=== PATIENT | female | born 1935 | race Caucasian/White ===

== ENCOUNTER 2017-06-27 13:55 | Inpatient (IN) | payer MEDICARE ==
[~2017-06-27] VITALS: Ht 167.6 cm; Wt 89.6 kg
--- NOTE | 2017-06-27 13:55 | NUR ---
BIBRA 860 C/O GENERALIZED WEAKNESS, COUGH AND PINPOINT PUPIL. PLACED ON MONITOR. AWAITING MD ORDER.
[2017-06-27 14:37] LABS: ABG BASE EXCESS -5.7 mmol/L; ABG OXYGEN SATURATION 88.4 % (92.0-98.5); ABG PCO2 37.6 mmHg (35.0-45.0); ABG PH 7.335 (7.350-7.450); ABG PO2 59.9 mmHg (75.0-100.0); AaDO2 182.1 mmHg; COHb 0.9 % (0.5-1.5); MetHb 0.3 % (0.0-1.5); O2Hb 87.3 % (94.0-97.0); SITE, ABG Right Radial; VENT MODE, BG NC 4L
[2017-06-27] MEDS ORDERED: ALPR0.5T8 PO (14:39)
[2017-06-27] MEDS ORDERED: ROSU10TA PO (14:39)
[2017-06-27] MEDS ORDERED: ZOLP10TA6 PO (14:39)
[2017-06-27] MEDS ORDERED: RANI150T8 PO (14:39)
[2017-06-27] MEDS ORDERED: METO25TA3 PO (14:39)
[2017-06-27] MEDS ORDERED: AMLO10TA2 PO (14:39)
[2017-06-27] MEDS ORDERED: OLME20TA13 PO (14:39)
[2017-06-27] MEDS ORDERED: AMIO200T2 PO (14:39)
[2017-06-27] MEDS ORDERED: OXYC10TA49 PO (14:39)
[2017-06-27] MEDS ORDERED: GABA-534 PO (14:39)
[2017-06-27] MEDS ORDERED: METF500T4 PO (14:39)
--- NOTE | 2017-06-27 14:39 | NUR ---
ACOUSTICAL ENGINEER AT BEDSIDE
--- NOTE | 2017-06-27 14:44 | NUR ---
NAY # 20 IV ACCESS. BLOOD SAMPLE COLLECTED SENT TO LAB
[2017-06-27 14:45] LABS: BASOPHILS # (AUTO) 0.2 /CMM (0.0-0.2); BASOPHILS % (AUTO) 1.3 % (0.0-2.0); HEMATOCRIT 36 % (33-45); HEMOGLOBIN 11.9 g/dL (11.5-14.8); LYMPHOCYTES # (AUTO) 0.9 /CMM (0.8-4.8); LYMPHOCYTES % (AUTO) 6.3 % (20.0-44.0); MEAN CORPUSCULAR HEMOGLOBIN 26 PG (26.0-33.0); MEAN CORPUSCULAR HGB CONC 33 g/dl (31.0-36.0); MEAN CORPUSCULAR VOLUME 79 fL (82-100); MONOCYTES # (AUTO) 0.2 /CMM (0.1-1.30); MONOCYTES % (AUTO) 1.4 % (2.0-12.0); NEUTROPHILS # (AUTO) 13.3 /CMM (1.8-8.9); PLATELET COUNT (AUTO) 377 /CMM (150-450); RDW COEFFICIENT OF VARIATION 17.7 (11.5-15.0); RED BLOOD CELL COUNT(AUTO) 4.55 MIL/uL (4.0-5.2); WHITE BLOOD COUNT (AUTO) 14.6 K/uL (4.3-11.0)
[2017-06-27 14:54] LABS: INR 0.89 (0.85-1.15)
[2017-06-27 14:56] LABS: APPEARANCE,URINE Clear (CLEAR); BILIRUBIN,URINE Negative (NEGATIVE); BLOOD, URINE Negative Ery/uL (NEGATIVE); COLOR,URINE Yellow (YELLOW); KETONES,URINE Negative (NEGATIVE); LEUKOCYTE ESTERASE ,URINE Negative (NEGATIVE); NITRITE, URINE Positive (NEGATIVE); PROTEIN,URINE 30 mg/dl (NEGATIVE); UGLUCOSE Negative (NEGATIVE); UROBILINOGEN,URINE 0.2 EU/dL (0.2)
[2017-06-27] MEDS ORDERED: NALOXONE HCL 0.4 MG/ML AMPUL IV ONE (15:00)
--- NOTE | 2017-06-27 15:04 | NUR ---
FILM RENTAL CLERK AT BEDSIDE
[2017-06-27] MEDS ORDERED: NALOXONE HCL 0.4 MG/ML AMPUL ONE (15:08)
[2017-06-27] MEDS ORDERED: VANCOMYCIN 1 GM in IV D5W 250 ML IV ONE (15:30)
[2017-06-27] MEDS ORDERED: IV NS 0.9% 1,000 ML BAG IV ONE (15:30)
[2017-06-27] MEDS ORDERED: CEFEPIME 1 GM in IV D5W 50 ML IV ONE (15:30)
[2017-06-27 15:31] LABS: CALCIUM, SERUM 8.6 mg/dL (8.5-10.1); CARBON DIOXIDE 21 mmol/L (21-32); CHLORIDE 105 mmol/L (98-107); GLUCOSE 116 mg/dL (74-106); POTASSIUM 3.9 mmol/L (3.5-5.1); SODIUM SERUM 142 mmol/L (136-145); UREA NITROGEN, BLOOD 30 mg/dL (7-18)
[2017-06-27 15:43] LABS: ALANINE AMINOTRANSFERASE 34 U/L (12-78); ALBUMIN 3.5 g/dL (3.4-5.0); ALKALINE PHOSPHATASE 100 U/L (46-116); ASPARTATE AMINOTRANSFERASE 29 U/L (15-37); B-TYPE NATRIURETIC PEPTIDE 1263 PG/ML (0-125); BILIRUBIN,DIRECT 0.1 mg/dL (0.0-0.2); BILIRUBIN,TOTAL 0.5 mg/dL (0.2-1.0); TOTAL PROTEIN, SERUM 7.3 g/dL (6.4-8.2)
[2017-06-27 16:14] LABS: RBC,URINE 0-2 /HPF (0-2)
[2017-06-27 16:15] LABS: BACTERIA,URINE Moderate /HPF (None Seen); SQUAMOUS EPITHELIAL CELL,UR Few /HPF (None Seen)
[2017-06-27] MEDS ORDERED: IOHEXOL-350 100 ML VIAL IV ONE (16:30)
[2017-06-27] MEDS ORDERED: IV NS 0.9% 250 ML IV ONE (16:30)
--- NOTE | 2017-06-27 17:29 | NUR ---
CALLED NURSING LIMO DRIVER REQUESTING A BED.
[2017-06-27] MEDS ORDERED: ASPIRIN 325 MG TABLET PO ONE (17:30)
[2017-06-27] MEDS ORDERED: ASPIRIN 325 MG TABLET ONE (17:48)
--- NOTE | 2017-06-27 18:23 | NUR ---
GAVE REPORT TO HARRISON KAT ADMITTING GAIL KAUR NP SEPSIS DX
[2017-06-27] MEDS ORDERED: ZOLPIDEM TARTRATE 10 MG TABLET PO PRN (18:30)
[2017-06-27] MEDS ORDERED: HYDROCODONE/APAP 10/325MG 1 EA TABLET PO PRN (18:30)
[2017-06-27] MEDS ORDERED: ONDANSETRON HCL/PF 4 MG/2 ML VIAL IVP PRN (18:30)
[2017-06-27] MEDS ORDERED: Z GUARD REMEDY 2 OZ OINT TP PRN (18:30)
[2017-06-27] MEDS ORDERED: MAGNESIUM HYDROXIDE 30 ML UDC PO PRN (18:30)
[2017-06-27] MEDS ORDERED: ACETAMINOPHEN 325 MG TABLET PO PRN (18:30)
[2017-06-27] MEDS ORDERED: HYDROCODONE/APAP 5/325MG 1 EACH TABLET PO PRN (18:30)
[2017-06-27] MEDS: ENOXAPARIN SODIUM 40 MG/0.4 ML DISP.SYRIN SQ SCH ×2 (18:53→21:13)
[2017-06-27] MEDS ORDERED: oxyCODONE IR immediate release 5 MG PO PRN (19:00)
[2017-06-27 20:00] VITALS: BP 130/64
[2017-06-27] MEDS ORDERED: CEFTRIAXONE 1 G in IV D5W 50 ML IV SCH (20:00)
[2017-06-27] MEDS ORDERED: AZITHROMYCIN 500 MG in IV D5W 250 ML IV SCH (21:00)
[2017-06-27] MEDS: GABAPENTIN 300 MG CAPSULE PO SCH (21:14)
[2017-06-27] MEDS: IV NS 0.9% 1,000 ML IV PRN (21:42)
[2017-06-27] MEDS ORDERED: AZITHROMYCIN 500 MG VIAL ONE (22:35)
[2017-06-28] VITALS: BP 125/54
[2017-06-28 04:00] VITALS: BP 140/63
[2017-06-28] MEDS ORDERED: DOCU-159 PO (04:38)
[2017-06-28] MEDS ORDERED: FLUC200T8 PO (04:38)
[2017-06-28 06:33] LABS: BASOPHILS % (AUTO) 0.1 % (0.0-2.0); EOSINOPHILS % (AUTO) 0.1 % (0.0-6.0); HEMATOCRIT 28 % (33-45); LYMPHOCYTES # (AUTO) 1.2 /CMM (0.8-4.8); MEAN CORPUSCULAR HEMOGLOBIN 26 PG (26.0-33.0); MEAN CORPUSCULAR HGB CONC 33 g/dl (31.0-36.0); MEAN CORPUSCULAR VOLUME 80 fL (82-100); MONOCYTES # (AUTO) 1.1 /CMM (0.1-1.30); MONOCYTES % (AUTO) 3.6 % (2.0-12.0); NEUTROPHILS # (AUTO) 27.9 /CMM (1.8-8.9); NEUTROPHILS % (AUTO) 92.2 % (43.0-81.0); PLATELET COUNT (AUTO) 265 /CMM (150-450); RED BLOOD CELL COUNT(AUTO) 3.46 MIL/uL (4.0-5.2)
[2017-06-28 06:38] LABS: ALANINE AMINOTRANSFERASE 21 U/L (12-78); ALBUMIN 2.7 g/dL (3.4-5.0); ALKALINE PHOSPHATASE 69 U/L (46-116); ASPARTATE AMINOTRANSFERASE 22 U/L (15-37); BILIRUBIN,TOTAL 0.6 mg/dL (0.2-1.0); CALCIUM, SERUM 8.1 mg/dL (8.5-10.1); CARBON DIOXIDE 24 mmol/L (21-32); CHLORIDE 107 mmol/L (98-107); GLUCOSE 104 mg/dL (74-106); MAGNESIUM 1.7 mg/dL (1.8-2.4); PHOSPHORUS 3.5 mg/dL (2.5-4.9); POTASSIUM 3.4 mmol/L (3.5-5.1); SODIUM SERUM 141 mmol/L (136-145); TOTAL PROTEIN, SERUM 6.1 g/dL (6.4-8.2); UREA NITROGEN, BLOOD 21 mg/dL (7-18)
[2017-06-28 06:42] LABS: TROPONIN I 0.102 ng/mL (0.00-0.056)
[2017-06-28 06:47] LABS: WHITE BLOOD COUNT (AUTO) 30.2 K/uL (4.3-11.0)
--- NOTE | 2017-06-28 07:04 | NUR ---
RN NOTE PT REMAINS IN NO ACUTE DISTRESS IN BED. PT DID NOT HAVE ANY SIGNIFICANT CHANGE IN CONDITION DURING SHIFT. ALL NEEDS MET, ALL ORDERS CARRIED OUT. WILL ENDORSE CARE TO AM RN FOR CONTINUITY OF CARE.
[2017-06-28 07:17] LABS: CHOLESTEROL 102 mg/dL (<200); HDL CHOLESTEROL 59 mg/dL (40-60); LDL 30 mg/dL (0-99); THYROID STIMULATING HORMONE 1.597 uIU/mL (0.358-3.74); TRIGLYCERIDES 106 mg/dL (30-150)
[2017-06-28 08:00] VITALS: BP 171/77
[2017-06-28] MEDS: METOPROLOL SUCCINATE 25 MG TAB.SR.24H PO SCH ×2 (08:48→16:45)
[2017-06-28] MEDS: ASPIRIN 81 MG TAB.CHEW PO SCH (08:48)
[2017-06-28] MEDS: AMIODARONE HCL 200 MG TABLET PO SCH (08:49)
[2017-06-28] MEDS: AMLODIPINE BESYLATE 10 MG TABLET PO SCH (08:49)
[2017-06-28] MEDS: METFORMIN 500 MG TABLET PO SCH ×3 (08:49→17:00)
[2017-06-28] MEDS: GABAPENTIN 300 MG CAPSULE PO SCH ×4 (08:49→20:58)
[2017-06-28 09:07] LABS: BAND % (MANUAL) 17 % (0.0-5.0); EOSINOPHILS % (MANUAL) 1 % (0-4); LYMPHOCYTES % (MANUAL) 4 % (16-48); MONOCYTES % (MANUAL) 3 % (0-11.0); NEUTROPHILS % (MANUAL) 75 (42-76)
[2017-06-28 09:18] LABS: BASOPHILS # (AUTO) 0.1 /CMM (0.0-0.2); BASOPHILS % (AUTO) 0.2 % (0.0-2.0); EOSINOPHILS % (AUTO) 0.2 % (0.0-6.0); HEMATOCRIT 27 % (33-45); HEMOGLOBIN 8.6 g/dL (11.5-14.8); LYMPHOCYTES # (AUTO) 1.1 /CMM (0.8-4.8); LYMPHOCYTES % (AUTO) 3.6 % (20.0-44.0); MEAN CORPUSCULAR HEMOGLOBIN 26 PG (26.0-33.0); MEAN CORPUSCULAR HGB CONC 32 g/dl (31.0-36.0); MEAN CORPUSCULAR VOLUME 81 fL (82-100); MONOCYTES # (AUTO) 0.8 /CMM (0.1-1.30); MONOCYTES % (AUTO) 2.9 % (2.0-12.0); NEUTROPHILS # (AUTO) 26.9 /CMM (1.8-8.9); NEUTROPHILS % (AUTO) 93.1 % (43.0-81.0); PLATELET COUNT (AUTO) 262 /CMM (150-450); RDW COEFFICIENT OF VARIATION 18.7 (11.5-15.0); RED BLOOD CELL COUNT(AUTO) 3.35 MIL/uL (4.0-5.2); WHITE BLOOD COUNT (AUTO) 28.9 K/uL (4.3-11.0)
[2017-06-28] MEDS ORDERED: POTASSIUM CHLORIDE 20 MEQ TAB.PRT.SR PO SCH (10:00)
[2017-06-28] MEDS: Magnesium 1GM/D5W 100ML PREMIX 100 ML IV SCH ×2 (10:08→18:11)
[2017-06-28] MEDS: ALPRAZOLAM 0.5 MG TABLET PO PRN ×2 (11:18→23:36)
--- NOTE | 2017-06-28 11:20 | NUR ---
1107: Patient ambulated with PT. After ambulation patient BP was high and patient was anxious given xanax.
--- NOTE | 2017-06-28 11:44 | NUR ---
1126: Received critical lab of 2.7 lactic acid from lab ([facility]) 1127: I told result to CHEMO Bates, verbally. No new order. Addendum: 06/28/17 at 1301 by RANDAL LANIER RN 1200: Tylenol not given since she was given another dose at 1100
[2017-06-28] MEDS: ACETAMINOPHEN 325 MG TABLET PO SCH ×4 (11:50→23:36)
[2017-06-28] MEDS: hydrALAZINE HCL 10 MG TABLET PO PRN ×2 (11:50→20:58)
[2017-06-28 12:00] VITALS: BP 138/72
[2017-06-28] MEDS ORDERED: IV NS 0.9% 500 ML IV ONE (12:00)
[2017-06-28 12:43] LABS: ABG BASE EXCESS -1.2 mmol/L; ABG OXYGEN SATURATION 92.4 % (92.0-98.5); ABG PCO2 35.2 mmHg (35.0-45.0); ABG PH 7.429 (7.350-7.450); ABG PO2 68.6 mmHg (75.0-100.0); AaDO2 147.3 mmHg; COHb 0.1 % (0.5-1.5); MetHb 0.4 % (0.0-1.5); O2Hb 91.9 % (94.0-97.0); SITE, ABG Left Radial; VENT MODE, BG Nasal Cannula
[2017-06-28] MEDS ORDERED: FAMOTIDINE (20 MG) 20 MG TABLET PO SCH (13:00)
[2017-06-28] MEDS: ATORVASTATIN 10 MG TABLET PO SCH (13:55)
--- NOTE | 2017-06-28 15:07 | NUR ---
1507: Patient had bloody sputum. I texted SLOT MACHINE REPAIRER Shantanu
[2017-06-28] MEDS: PANTOPRAZOLE 40 MG VIAL IV SCH (15:08)
[2017-06-28 15:17] LABS: IRON, SERUM 11 ug/dl (50-175); TOTAL IRON BINDING CAPACITY 351 ug/dl (250-450)
[2017-06-28 16:00] VITALS: BP 149/76
[2017-06-28] MEDS ORDERED: CEFEPIME 2 GM in IV NS 0.9% 50 ML IV SCH ×2 (16:30→21:00)
[2017-06-28] MEDS ORDERED: POTASSIUM CHLORIDE 20 MEQ TAB.PRT.SR PO ONE (16:30)
[2017-06-28] MEDS: LACTOBACILLUS RHAMNOSUS GG 1 EACH CAP.SPRINK PO SCH (16:43)
[2017-06-28] MEDS ORDERED: FEE PK DOSING 1 MIN EA MC ONE (18:25)
[2017-06-28 20:00] VITALS: BP 197/96
[2017-06-28] MEDS: VANCOMYCIN 1.25 GM in IV D5W 500 ML IV SCH (20:00)
--- NOTE | 2017-06-28 20:00 | NUR ---
RN NOTE PT HAD EPISODE OF BLOODY MUCUS UPON COUCHING. NOTIFIED MD AND WILL CONTINUE TO MONITOR. PT IS CURRENTLY ON ANTIBIOTIC THERAPY.
[2017-06-28] MEDS: PIPERACILLIN /TAZOBACTAM 3.375 G in IV NS 0.9% 50 ML IV SCH (20:57)
[2017-06-28] MEDS: ENOXAPARIN SODIUM 40 MG/0.4 ML DISP.SYRIN SQ SCH (20:58)
[2017-06-28] MEDS: ALBUTEROL FS 2.5 MG/0.5 ML VIAL.NEB NEB PRN (22:27)
[2017-06-28] MEDS: IPRATROPIUM NEB FS 0.5 MG/2.5 ML AMPUL.NEB NEB PRN (22:28)
[2017-06-29] VITALS (7 sets, daily range): BP systolic 131–199; BP diastolic 72–118
[2017-06-29] MEDS ORDERED: VANCOMYCIN 1 GM VIAL ONE (00:10)
[2017-06-29] MEDS: DOXYCYCLINE 100 MG in IV NS 0.9% 100 ML IV SCH ×3 (00:10→21:21)
[2017-06-29] MEDS: PIPERACILLIN /TAZOBACTAM 3.375 G in IV NS 0.9% 50 ML IV SCH ×4 (01:00→17:06)
[2017-06-29] MEDS: ALPRAZOLAM 0.5 MG TABLET PO PRN ×2 (01:27→15:42)
[2017-06-29] MEDS: ALBUTEROL FS 2.5 MG/0.5 ML VIAL.NEB NEB PRN (02:50)
[2017-06-29] MEDS: IPRATROPIUM NEB FS 0.5 MG/2.5 ML AMPUL.NEB NEB PRN (02:50)
[2017-06-29] MEDS: hydrALAZINE HCL 10 MG TABLET PO PRN (05:23)
[2017-06-29] MEDS: ACETAMINOPHEN 325 MG TABLET PO SCH ×3 (05:23→17:07)
[2017-06-29] MEDS: HYDROCODONE/APAP 10/325MG 1 EA TABLET PO PRN ×2 (06:18→11:54)
[2017-06-29 06:27] LABS: HEMATOCRIT 27 % (33-45); HEMOGLOBIN 8.7 g/dL (11.5-14.8); LYMPHOCYTES # (AUTO) 0.6 /CMM (0.8-4.8); LYMPHOCYTES % (AUTO) 2.1 % (20.0-44.0); MEAN CORPUSCULAR HEMOGLOBIN 26 PG (26.0-33.0); MEAN CORPUSCULAR HGB CONC 32 g/dl (31.0-36.0); MEAN CORPUSCULAR VOLUME 81 fL (82-100); MONOCYTES # (AUTO) 1.3 /CMM (0.1-1.30); MONOCYTES % (AUTO) 4.7 % (2.0-12.0); NEUTROPHILS # (AUTO) 25.8 /CMM (1.8-8.9); NEUTROPHILS % (AUTO) 93.2 % (43.0-81.0); PLATELET COUNT (AUTO) 250 /CMM (150-450); RED BLOOD CELL COUNT(AUTO) 3.36 MIL/uL (4.0-5.2); WHITE BLOOD COUNT (AUTO) 27.7 K/uL (4.3-11.0)
[2017-06-29 06:33] LABS: ALANINE AMINOTRANSFERASE 20 U/L (12-78); ALBUMIN 2.7 g/dL (3.4-5.0); ALKALINE PHOSPHATASE 90 U/L (46-116); ASPARTATE AMINOTRANSFERASE 16 U/L (15-37); BILIRUBIN,TOTAL 0.6 mg/dL (0.2-1.0); CALCIUM, SERUM 8.6 mg/dL (8.5-10.1); CARBON DIOXIDE 25 mmol/L (21-32); CHLORIDE 106 mmol/L (98-107); CREATININE 0.8 mg/dL (0.6-1.3); GLUCOSE 154 mg/dL (74-106); PHOSPHORUS 2.2 mg/dL (2.5-4.9); POTASSIUM 2.9 mmol/L (3.5-5.1); SODIUM SERUM 142 mmol/L (136-145); TOTAL PROTEIN, SERUM 6.6 g/dL (6.4-8.2); UREA NITROGEN, BLOOD 8 mg/dL (7-18)
[2017-06-29] MEDS: ASPIRIN 81 MG TAB.CHEW PO SCH (08:31)
[2017-06-29] MEDS: AMLODIPINE BESYLATE 10 MG TABLET PO SCH (08:32)
[2017-06-29] MEDS: GABAPENTIN 300 MG CAPSULE PO SCH ×4 (08:32→21:21)
[2017-06-29] MEDS: METOPROLOL SUCCINATE 25 MG TAB.SR.24H PO SCH ×2 (08:32→16:15)
[2017-06-29] MEDS: METFORMIN 500 MG TABLET PO SCH ×2 (08:32→16:14)
[2017-06-29] MEDS: AMIODARONE HCL 200 MG TABLET PO SCH (08:32)
[2017-06-29] MEDS: LACTOBACILLUS RHAMNOSUS GG 1 EACH CAP.SPRINK PO SCH ×2 (08:32→16:15)
[2017-06-29] MEDS ORDERED: TUBERCULIN,PURIF.PROT.DERIV. 5 TU/0.1 ML VIAL ID ONE (09:00)
[2017-06-29 09:06] LABS: C-REACTIVE PROTEIN 28.9 mg/dL (0.0-0.9)
[2017-06-29] MEDS: NEUTRA PHOS 1 POWD.PACKET PO SCH ×2 (10:45→16:14)
[2017-06-29] MEDS: POTASSIUM CHLORIDE 20 MEQ TAB.PRT.SR PO SCH ×5 (10:45→14:08)
[2017-06-29 11:05] LABS: ABG BASE EXCESS -0.5 mmol/L; ABG OXYGEN SATURATION 86.8 % (92.0-98.5); ABG PCO2 35.2 mmHg (35.0-45.0); ABG PO2 53.6 mmHg (75.0-100.0); AaDO2 227.2 mmHg; COHb 1.7 % (0.5-1.5); MetHb 0.7 % (0.0-1.5); O2Hb 84.7 % (94.0-97.0); SITE, ABG Right Radial
--- NOTE | 2017-06-29 12:00 | NUR ---
RN NOTES RECEIVED PT IN ROOM 103, A/Ox3, ANXIOUS AND RESTLESS, ON A NR MASK ,O2 SAT 93-94 %, PT REFUSING TO WEAR NR MASK ON , EDUCATED PT HOW IMPORTANT IT IS TO KEEP NR MASK ON AND FOLLOW THE PLAN OF CARE , FAMILY AT THE BEDSIDE , ON TELE NSR , L UPPER ARM MIDLINE SITE CDI, WITH NS AT 75C/HR RUNNING. PT IS WANTS TO GET OOB , VERY SHORT OF BREATH WHEN SHE GETS OOB , ORDER RECEIVED TO INSERT KEATING AT THIS TIME . SR UP x3, CALL LIGHTS WITHIN EASY REACH, CONTINUE TO MONITOR.
--- NOTE | 2017-06-29 12:15 | NUR ---
RN NOTES PT EDUCATED REGARDING KEATING AND THE REASON TO HAVE KEATING CATH AT THIS TIME . PT STILL FORGETFUL AND ANXIOUS , AND WANT TO TAKE THE O2 OFF,AND GET OOB , ENCOURAGED PT TO KEEP NR MASK ON AT ALL TIME . O2 SAT 93% AT THIS TIME.
--- NOTE | 2017-06-29 12:30 | NUR ---
RN NOTES KEATING INSERTED BY CHARGE NURSE SOON .
--- NOTE | 2017-06-29 13:00 | NUR ---
RN NOTES PT TOOK NR MASK OFF AND STATED DOES NOT WANT TO WEAR THE MASK AT ALL, PT STILL ANXIOUS AND FORGETFUL , O2 SAT DROPPED TO 60%, EXPLAINED TO PT HOW IMPORTANT IT IS TO KEEP THE OXYGEN ON AT ALL TIMES , PT AGREED TO KEEP IT ON FOR NOW , O2 SAT UP TO 93% WITH NR MASK ON , ENCOURAGED PT TO TAKE DEEP AND SLOW BREATHING , FAMILY AT BEDSIDE, CONTINUE TO MONITOR .
[2017-06-29] MEDS: ATORVASTATIN 10 MG TABLET PO SCH (13:21)
[2017-06-29] MEDS ORDERED: SOD FERRIC GLUC 125 MG in IV NS 0.9% 100 ML IV SCH (14:00)
[2017-06-29] MEDS: VANCOMYCIN 1.25 GM in IV D5W 500 ML IV SCH (14:08)
[2017-06-29] MEDS: PANTOPRAZOLE 40 MG VIAL IV SCH (14:11)
--- NOTE | 2017-06-29 15:00 | NUR ---
NORTH NOTES PT STILL ANXIOUS AND TAKES NR MASK OFF AT TIMES, O2 SAT 93-955, FAMILY AT THE BEDSIDE, NS AT 75CC/HR RUNNING VIA L UPPER ARM MIDLINE, CONTINUE TO MONITOR . Addendum: 06/29/17 at 1936 by ROBERT LR RN CORRECTION O2 SAT 93 TO 95%
[2017-06-29] MEDS: FERROUS SULFATE (325 MG) 325 MG/TAB TABLET PO SCH (17:06)
[2017-06-29] MEDS: BENICAR 40 MG PO SCH (17:06)
--- NOTE | 2017-06-29 18:00 | NUR ---
RN NOTES PT TOOK THE NR MASK OFF AGAIN AND WANTED TO EAT DINNER AND GET OUT OF THE BED, C/O SHORT OFF BREATH ., O2 SAT 60%, RT NOTIFIED, EXPLAINED TO PT HOW IMPORTANT IT IS TO FOLLOW THE PLAN OF CARE AND KEEP O2 SAT GREATER THAN 93% PER DR MENDOZA ORDER , ASSISTED PT TO EAT DINNER WITH THE NR MASK ON O2 SAT UP TO 95% AT THIS TIME .
--- NOTE | 2017-06-29 18:44 | NUR ---
RN NOTES PT STABLE , O2 SAT 97% ON NR MASK AT THIS TIME , ENCOURAGED PT TO KEEP NR MASK ON AT ALL TIME , PT FLAVIO ANY PAIN , SR UPx3, CALL LIGHT WITHIN EASY REACH, BED LOCKED AND IN LOWEST POSITION ,
[2017-06-29 19:39] LABS: INR 0.96 (0.87-1.13)
[2017-06-29 19:40] LABS: D-DIMER 2.74 mg/L(FEU (0.17-0.50)
--- NOTE | 2017-06-29 20:00 | NUR ---
RN NOTES RECEIVED PATIENT IN BED TRYING TO GET UP WITH SHORTNESS OF BREATH, DIFFICULTY BREATHING. ALERT AND ORIENTED. EXPLAINED RISK OF GETTING UP WITH O2 SATURATION GOING DOWN. PATIENT NON COMPLIANT. STILL INSISTED ON GETTING UP. ASSISTED PATIENT TO STAND UP BESIDE THE BED AND CONTINUOUS EDUCATING PATIENT REGARDING RISK OF THE HEART WORKING HARD, MONITORING 02 SAT AND HEART RATE. AFTER ABOUT 10 MINUTES PATIENT WENT BACK TO BACK WITH O2 SAT AT 62%, HEAD OF BED ELEVATED. 02 SA WENT BACK TO 92%. STILL NOTED WITH CONGESTION. PATIENT WANTED THE KEATING CATHETER REMOVED. EXPLAINED THE NEED TO HAVE IT AT THIS TIME AND WILL MONITOR AND EVALUATE NEED TO HAVE KEATING CATH IN AM. RESIDENT AGREED AND WENT TO SLEEP. KEATING CATH INTACT IN PLACE DRAINING CLEAR YELLOW WITH NO FOUL ODOR URINE. RESIDENT PLACED ON ISOLATION FOR ESBL IN URINE. VITAL SIGNS WNL. WILL CONTINUE TO MONITOR.
[2017-06-29] MEDS: IV NS 0.9% 1,000 ML IV PRN (20:26)
[2017-06-29] MEDS: ENOXAPARIN SODIUM 40 MG/0.4 ML DISP.SYRIN SQ SCH (21:24)
--- NOTE | 2017-06-29 21:49 | NUR ---
RN NOTES PATIENT REFUSED ADMINISTRATION OF LOVENOX. EXPLAINED RISK AND BENEFITS BUT STILL PATIENT REFUSED. PATIENT SAID SHE DOES NOT NEED IT AND SHE IS A BLEEDER.
[2017-06-30] VITALS (19 sets, daily range): BP systolic 141–195; BP diastolic 45–131
[2017-06-30] MEDS: PIPERACILLIN /TAZOBACTAM 3.375 G in IV NS 0.9% 50 ML IV SCH ×4 (00:14→18:28)
[2017-06-30] MEDS: ACETAMINOPHEN 325 MG TABLET PO SCH ×5 (00:15→18:00)
--- NOTE | 2017-06-30 06:20 | NUR ---
RN CLOSING NOTES IN BED SLEEPING WITH NO DISTRESS NOTED. ON 10LPM VIA MASK TOLERATING WELL WITH 02SAT 97%. NO COMPLAINT OF PAIN. VITAL SIGNS WNL. WILL ENDORSE TO AM SHIFT FOR CONTINUITY OF CARE
[2017-06-30 06:51] LABS: ALANINE AMINOTRANSFERASE 20 U/L (12-78); ALBUMIN 2.4 g/dL (3.4-5.0); ALKALINE PHOSPHATASE 100 U/L (46-116); ASPARTATE AMINOTRANSFERASE 15 U/L (15-37); BILIRUBIN,TOTAL 0.6 mg/dL (0.2-1.0); CALCIUM, SERUM 8.6 mg/dL (8.5-10.1); CARBON DIOXIDE 24 mmol/L (21-32); CHLORIDE 107 mmol/L (98-107); CREATININE 0.7 mg/dL (0.6-1.3); GLUCOSE 122 mg/dL (74-106); MAGNESIUM 1.8 mg/dL (1.8-2.4); PHOSPHORUS 2.8 mg/dL (2.5-4.9); POTASSIUM 3.6 mmol/L (3.5-5.1); SODIUM SERUM 141 mmol/L (136-145); TOTAL PROTEIN, SERUM 6.4 g/dL (6.4-8.2); UREA NITROGEN, BLOOD 10 mg/dL (7-18)
[2017-06-30 06:56] LABS: EOSINOPHILS # (AUTO) 0.1 /CMM (0.0-0.7); EOSINOPHILS % (AUTO) 0.5 % (0.0-6.0); HEMATOCRIT 27 % (33-45); HEMOGLOBIN 8.6 g/dL (11.5-14.8); LYMPHOCYTES # (AUTO) 0.9 /CMM (0.8-4.8); LYMPHOCYTES % (AUTO) 4.1 % (20.0-44.0); MEAN CORPUSCULAR HEMOGLOBIN 26 PG (26.0-33.0); MEAN CORPUSCULAR HGB CONC 32 g/dl (31.0-36.0); MEAN CORPUSCULAR VOLUME 81 fL (82-100); MONOCYTES # (AUTO) 1.6 /CMM (0.1-1.30); MONOCYTES % (AUTO) 7.3 % (2.0-12.0); NEUTROPHILS # (AUTO) 19.4 /CMM (1.8-8.9); NEUTROPHILS % (AUTO) 88.1 % (43.0-81.0); PLATELET COUNT (AUTO) 241 /CMM (150-450); RDW COEFFICIENT OF VARIATION 19.5 (11.5-15.0); RED BLOOD CELL COUNT(AUTO) 3.35 MIL/uL (4.0-5.2)
--- NOTE | 2017-06-30 07:10 | NUR ---
RN INITIAL NOTES: REC'D PT ON BED SLEEPING, NOT IN ANY DISTRESS, A/O X3. ON SIMPLE MASK AT 10LPM, SATING AT 93%. ON TELEMONITOR, SR W/ HR 78 BPM. HAS ZUHAIR MIDLINE W/ NS X 75 CC/HR INFUSING WELL. HAS FC PATENT & INTACT DRAINING TO YELLOWISH URINE OUTPUT. HAS 1:1 SITTER. PT NON COMPLIANT AT TIMES - REMOVING FACE MASK & WANTING TO GO TO THE RESTROOM DESPITE OF SOB. EXPLAINED TO HER THAT SHE CAN USE BEDSIDE COMMODE & DIAPER BUT REFUSED. PLACED ON NON REBREATHER MASK AT 15LPM D/T EPISODE OF DESATURATION & C/O SOB WHILE ON NC/6LPM. PROVIDED COMFORT & SAFETY MEASURES. BED KEPT LOW & IN LOCKED POS. CALL LIGHT PLACED W/IN REACH. WILL CONTINUE TO MONITOR & ATTEND PT NEEDS.
[2017-06-30 08:15] LABS: INR 0.91 (0.87-1.13)
[2017-06-30 08:16] LABS: D-DIMER 3.58 mg/L(FEU (0.17-0.50)
--- NOTE | 2017-06-30 09:00 | NUR ---
RN NOTES: PT KEEPS ON BENDING HER LEFT ARM CAUSING HER ZUHAIR MIDLINE TO BE POSITIONAL, IV ABX STILL ONGOING. DRESSING CHANGED, ZUHAIR MIDLINE FLUSHING WELL. EXPLAINED TO PT NOT TO BEND HER ARM TOO MUCH, VERBALIZED UNDERSTANDING BUT STILL W/ EPISODE OF FORGETFULNESS.
--- NOTE | 2017-06-30 09:00 | NUR ---
RN NOTES: PT SEEN & EXAMINED BY DR. MURPHY. MANUAL BP TAKEN ORDERED 141/84, MADE AWARE. BM X 1, SENT FOR OCCULT BLOOD.
[2017-06-30] MEDS: ASPIRIN 81 MG TAB.CHEW PO SCH (09:09)
[2017-06-30] MEDS: GABAPENTIN 300 MG CAPSULE PO SCH ×2 (09:09→13:11)
[2017-06-30] MEDS: LACTOBACILLUS RHAMNOSUS GG 1 EACH CAP.SPRINK PO SCH ×2 (09:09→17:09)
[2017-06-30] MEDS: METFORMIN 500 MG TABLET PO SCH ×2 (09:11→17:10)
[2017-06-30] MEDS: AMLODIPINE BESYLATE 10 MG TABLET PO SCH (09:11)
[2017-06-30] MEDS: METOPROLOL SUCCINATE 25 MG TAB.SR.24H PO SCH ×2 (09:11→17:10)
[2017-06-30] MEDS: AMIODARONE HCL 200 MG TABLET PO SCH (09:12)
[2017-06-30] MEDS: FERROUS SULFATE (325 MG) 325 MG/TAB TABLET PO SCH ×2 (09:12→17:10)
[2017-06-30] MEDS: VANCOMYCIN 1.25 GM in IV D5W 500 ML IV SCH (09:12)
[2017-06-30 09:15] LABS: BAND % (MANUAL) 2 % (0.0-5.0); EOSINOPHILS % (MANUAL) 1 % (0-4); LYMPHOCYTES % (MANUAL) 2 % (16-48); MONOCYTES % (MANUAL) 3 % (0-11.0); NEUTROPHILS % (MANUAL) 92 (42-76)
[2017-06-30] MEDS: DOXYCYCLINE 100 MG in IV NS 0.9% 100 ML IV SCH ×2 (09:18→21:13)
[2017-06-30] MEDS: BENICAR 40 MG PO SCH (10:11)
[2017-06-30] MEDS: ALPRAZOLAM 0.5 MG TABLET PO PRN (10:12)
[2017-06-30 10:15] LABS: IMMUNOGLOBULIN A, SERUM 85 mg/dL (64-422); IMMUNOGLOBULIN A, SERUM 89 mg/dL (64-422); IMMUNOGLOBULIN G, SERUM 709 mg/dL (700-1600); IMMUNOGLOBULIN G, SERUM 725 mg/dL (700-1600); IMMUNOGLOBULIN M, SERUM 32 mg/dL (26-217); IMMUNOGLOBULIN M, SERUM 34 mg/dL (26-217)
--- NOTE | 2017-06-30 11:00 | NUR ---
RN NOTES: PT REQUESTED FOR XANAX, VERBALIZING SHE IS HAVING ANXIETY. DTR SELVIN MADE AWARE. ABG DONE & RELAYED TO DR. MENDOZA W/ ORDERS TO TRANSFER PT TO ICU. GAIL OSCAR MADE AWARE OF ABG RESULT & DR. MENDOZA ORDERS. Addendum: 06/30/17 at 1153 by REJI TAMEZ RN ADDENDUM: PER DR. MENDOZA TO DC XANAX.
[2017-06-30 11:19] LABS: ABG BASE EXCESS -3.5 mmol/L; ABG OXYGEN SATURATION 97.4 % (92.0-98.5); ABG PCO2 46.3 mmHg (35.0-45.0); ABG PH 7.309 (7.350-7.450); ABG PO2 129.8 mmHg (75.0-100.0); COHb 0.3 % (0.5-1.5); MetHb 0.6 % (0.0-1.5); O2Hb 96.5 % (94.0-97.0); SITE, ABG Right Radial; VENT MODE, BG NRB MASK 15L
--- NOTE | 2017-06-30 12:00 | NUR ---
PROCESS CONTROL TECH NOTES: PT TRANSFERRED TO ICU ORDERED VIA ACLS PROTOCOL W/ CN & PRESIDENT ERGONOMIC CONSULTING. REPORT GIVEN TO NORTH PENNY AT BEDSIDE. DTR MADE AWARE OF THE TRANSFER. REQUEST TO CHANGE PT'S NAME TO "IRAJ GARCIA" ENDORSED TO LARGE SHEETFED PRESS OPERATOR VIRI. TRIED CALLING ADMISSION BUT NO ONE ANSWERING. CALLED LIZBET (DTR) TO GET CONSENT FOR EGD. PER DTR, SHE WANTED THE GI MD TO EXPLAIN FIRST THE PROCEDURE BEFORE GIVING CONSENT. ALSO ENDORSED TO RN THE LIST OF VISITORS (RETA, HIEN & LIZBET) THAT ARE ALLOWED TO VISIT THE PT.
--- NOTE | 2017-06-30 12:55 | NUR ---
GAS SYSTEM OPERATOR: pt.is transferred from [facility], has sitter, now: lethargic, can open eyes for seconds by touch, light pain without eyes contact, was confused, Xanax given recently by pt.request, no grimacing, arms/legs weak activity+, on 15 L NRBM O2, O2sat. 98-100%, no SOB, SR, SBP 160, IV pumps beeping/L.arm midline resistance
[2017-06-30] MEDS: ATORVASTATIN 10 MG TABLET PO SCH (13:13)
--- NOTE | 2017-06-30 13:15 | NUR ---
CLINIC CHARGE NURSE: pt.is more awake now, Ox1, but still sleepy, able to swallow ice cheaps, pills with aspiration precaution, no any pain, oriented for POC
--- NOTE | 2017-06-30 13:22 | NUR ---
COMPUTER SYSTEMS AUDITOR: midline is not working/occluded. Pt. daughter called/updated with current condition, VS, POC
--- NOTE | 2017-06-30 13:35 | NUR ---
PLATER APPRENTICE: is in room, reupdated with pt.neurostatus, VS, O2 sat., said: d/c Xanax, see new orders
[2017-06-30] MEDS: hydrALAZINE HCL IV 20 MG VIAL IV PRN ×2 (14:51→21:13)
--- NOTE | 2017-06-30 15:00 | NUR ---
NAVY SENIOR OFFICER: Gisel, ID BARROW WORKER is in room, updated with all above, spoke with pt.daughter, SBP over 160, Hydralazine 10mg IV was given. Pt.refused to use bedpan, called for BS commode, was notified re fall/injury risks, pt.Wt 198lbs.
[2017-06-30] MEDS: PANTOPRAZOLE 40 MG VIAL IV SCH (15:10)
--- NOTE | 2017-06-30 15:20 | NUR ---
PODIATRIC SURGEON: now pt.refused to use BS commode, said: I don't need it. Pt.was instructed to stay in bed, still on 15L O2 NRBM, easy to get SOB , distress, SR now
[2017-06-30] MEDS: ALBUTEROL FS 2.5 MG/0.5 ML VIAL.NEB NEB PRN ×2 (15:41→19:51)
[2017-06-30] MEDS: IPRATROPIUM NEB FS 0.5 MG/2.5 ML AMPUL.NEB NEB PRN ×2 (15:41→19:51)
--- NOTE | 2017-06-30 16:00 | NUR ---
TRAINING AND DEVELOPMENT ASSISTANT: resp.Tx is done by RT Brigitte, placed on SM 10L O2, O2 sat. WNL
[2017-06-30 17:31] LABS: OCCULT BLOOD STOOL NEGATIVE (NEGATIVE)
--- NOTE | 2017-06-30 18:00 | NUR ---
SURGICAL FORCEPS FABRICATOR: pt.is Ox2, needy, uncooperative, going to step out of bed, removed SM x3 times, sitter is at BS, was encouraged to follow POC, safety measures, pt.said: I want to do it, do not touch me, O2 sat.down to 86-89%, got explanation re desaturation c/o, HR 90-100, also notified re fall/injury risk, SM was applied back, gently will encourage to follow command, take pills
--- NOTE | 2017-06-30 18:29 | NUR ---
ACCOUNTING SPECIALIST: pt.daughter is in room, updated with pt.current mental status, VS, O2sat., pt.refusing to keep on O2 MS, supported pt.with explanation to bee cooperative and follow POC, O2 sat. 92-93%
--- NOTE | 2017-06-30 20:00 | NUR ---
CAR REPAIRMAN. INITIAL ASSESSMENT. RECEIVED THE PT AWAKE, ALERT, FOLLOW COMMANDS. RESPIRATORY RATE IS 28. OXYGEN SIMPLE MASK 12L,HOB ELEVATED. IV RT HAND 22G. FC PATENT. .AFEBRILE. WILL CONTINUE TO MONITOR VITALS.
[2017-06-30] MEDS: ENOXAPARIN SODIUM 40 MG/0.4 ML DISP.SYRIN SQ SCH (21:21)
--- NOTE | 2017-06-30 22:00 | NUR ---
PT WAS AWAKE,ALERT, PER PT , CODE STATUS CHANGED DNI.
--- NOTE | 2017-06-30 22:30 | NUR ---
BATTERY MECHANIC. PT IS AGITATED. TAKING OFF OXYGEN. GETTING OUT OF BED. DESATURATED.CAT DRIVER CALLED [facility] TIER LEON BIPAP ORDER RECEIVED. RT TRYING TO GET ABG. NOT GET THE ARTERIAL BLOOD.
[2017-06-30] MEDS ORDERED: QUETIAPINE FUMARATE 25 MG TABLET ONE (23:15)
[2017-06-30] MEDS ORDERED: QUETIAPINE FUMARATE 25 MG TABLET PO ONE (23:30)
--- NOTE | 2017-06-30 23:50 | NUR ---
SENIOR GAMEMASTER. IV MIDLINE PLACED.
--- NOTE | 2017-06-30 23:51 | NUR ---
DIVIDEND DEPOSIT ENTRY CLERK. PT SHAHID WAS AT BED SIDE. PT TAKING MEDICINE FROM HER SHAHID. I SAID YOU CANT TAKE ANY MEDS WITH OUT MD ORDER. SHE WAS HIDING MEDS. I FOUND HER HAND 1 TAB, . I CALLED EYE PHYSICIAN. ED AWARE. TAB NORVASC #46 , OXYCODONE # 2 ,AMBIEN #18 ,TAB XANAX 18.5 I PAGED FILM AND VIDEO GRAPHICS DESIGNER LICO.PT WAS AGITATED REMOVING OXYGEN . SEROQUEL 25MG PO GIVEN . NOW PT IS SLEEPING.
[2017-07-01] VITALS (25 sets, daily range): BP systolic 117–182; BP diastolic 49–92
[2017-07-01] MEDS: ACETAMINOPHEN 325 MG TABLET PO SCH ×5 (00:34→23:52)
[2017-07-01] MEDS: PIPERACILLIN /TAZOBACTAM 3.375 G in IV NS 0.9% 50 ML IV SCH ×5 (00:34→23:52)
[2017-07-01] MEDS ORDERED: VANCOMYCIN 1 GM VIAL ONE (03:07)
[2017-07-01] MEDS ORDERED: VANCOMYCIN 500 MG VIAL ONE (03:07)
[2017-07-01] MEDS: VANCOMYCIN 1.25 GM in IV D5W 500 ML IV SCH (03:09)
[2017-07-01] MEDS ORDERED: LORAZEPAM INJ 2 MG/ML VIAL ONE ×2 (03:28→06:50)
--- NOTE | 2017-07-01 03:40 | NUR ---
JEWELRY CASTING MODEL MAKER. PT AGITATED. PULLED OUT BIPAP PAGED ZAN ATIVAN 1MG ONCE AND . ADIN SOFT WRIST RESTRAINT. ORDERED.. WILL CONTINUE TO MONITOR VITALS.
[2017-07-01] MEDS ORDERED: LORAZEPAM INJ 2 MG/ML VIAL IV ONE ×2 (04:00→07:00)
[2017-07-01 05:29] LABS: BASOPHILS % (AUTO) 0.2 % (0.0-2.0); EOSINOPHILS % (AUTO) 0.4 % (0.0-6.0); HEMATOCRIT 24 % (33-45); HEMOGLOBIN 7.9 g/dL (11.5-14.8); LYMPHOCYTES # (AUTO) 0.8 /CMM (0.8-4.8); LYMPHOCYTES % (AUTO) 6.5 % (20.0-44.0); MEAN CORPUSCULAR HEMOGLOBIN 26 PG (26.0-33.0); MEAN CORPUSCULAR HGB CONC 32 g/dl (31.0-36.0); MEAN CORPUSCULAR VOLUME 80 fL (82-100); MONOCYTES # (AUTO) 1.2 /CMM (0.1-1.30); MONOCYTES % (AUTO) 10.1 % (2.0-12.0); NEUTROPHILS # (AUTO) 9.7 /CMM (1.8-8.9); NEUTROPHILS % (AUTO) 82.8 % (43.0-81.0); PLATELET COUNT (AUTO) 248 /CMM (150-450); RDW COEFFICIENT OF VARIATION 19.3 (11.5-15.0); RED BLOOD CELL COUNT(AUTO) 3.06 MIL/uL (4.0-5.2); WHITE BLOOD COUNT (AUTO) 11.8 K/uL (4.3-11.0)
[2017-07-01 05:55] LABS: CALCIUM, SERUM 8.4 mg/dL (8.5-10.1); CARBON DIOXIDE 32 mmol/L (21-32); CHLORIDE 106 mmol/L (98-107); CREATININE 0.6 mg/dL (0.6-1.3); GLUCOSE 121 mg/dL (74-106); SODIUM SERUM 143 mmol/L (136-145); UREA NITROGEN, BLOOD 7 mg/dL (7-18)
[2017-07-01] MEDS: IPRATROPIUM NEB FS 0.5 MG/2.5 ML AMPUL.NEB NEB PRN ×2 (05:55→19:51)
[2017-07-01] MEDS: ALBUTEROL FS 2.5 MG/0.5 ML VIAL.NEB NEB PRN ×2 (05:55→19:51)
[2017-07-01] MEDS ORDERED: LORAZEPAM INJ 2 MG/ML VIAL IV PRN (07:00)
--- NOTE | 2017-07-01 07:04 | NUR ---
MINISTER. PT PULLED OUT BIPAP AGITATED. PAGED KATHYA. ATIVAN 1MG STAT GIVEN. OXYGEN MASK 12L PLACED.
--- NOTE | 2017-07-01 07:10 | NUR ---
RN INITIAL NOTES RECEIVED PT AWAKE, RESTLESS/ AGITATED. ON NON-REBREATHER AT 15LPM. 02 SAT ABOVE 92%. HOB ELEVATED. C/O SOB. ABG DONE BY RT. WILL NOTIFY MD WITH RESULT. IV LINES IN PLACE. FC IN PLACE. NO HEMATURIA NOTED. BLE ELEVATED. SON AT BEDSIDE. WILL MONITOR.
[2017-07-01 07:29] LABS: ABG OXYGEN SATURATION 97.1 % (92.0-98.5); ABG PCO2 35.2 mmHg (35.0-45.0); ABG PH 7.506 (7.350-7.450); ABG PO2 102.9 mmHg (75.0-100.0); AaDO2 574.9 mmHg; COHb 0.3 % (0.5-1.5); MetHb 0.5 % (0.0-1.5); O2Hb 96.3 % (94.0-97.0); SITE, ABG Right Radial
[2017-07-01] MEDS: BENICAR 40 MG PO SCH (09:00)
[2017-07-01] MEDS: AMIODARONE HCL 200 MG TABLET PO SCH (09:00)
[2017-07-01] MEDS: FERROUS SULFATE (325 MG) 325 MG/TAB TABLET PO SCH ×2 (09:00→17:15)
[2017-07-01] MEDS: AMLODIPINE BESYLATE 10 MG TABLET PO SCH (09:00)
[2017-07-01] MEDS: LACTOBACILLUS RHAMNOSUS GG 1 EACH CAP.SPRINK PO SCH ×2 (09:00→17:15)
[2017-07-01] MEDS: METOPROLOL SUCCINATE 25 MG TAB.SR.24H PO SCH ×2 (09:00→17:15)
[2017-07-01] MEDS: ASPIRIN 81 MG TAB.CHEW PO SCH (09:00)
[2017-07-01] MEDS: METFORMIN 500 MG TABLET PO SCH ×2 (09:00→17:15)
[2017-07-01] MEDS: DOXYCYCLINE 100 MG in IV NS 0.9% 100 ML IV SCH ×2 (09:02→20:52)
--- NOTE | 2017-07-01 09:15 | NUR ---
RN NOTES SEEN AND EXAMINED BY GAIL KAUR NP. AWARE OF CURRENT LAB VALUES: WBC 11.8, HGB 7.9, HGB 24. POTASSIUM 3.0. ALSO AWARE OF CURRENT CXR AND ABG RESULT. PT AGITATED/RESTLESS. PT WAS ON NON-REBREATHER 15LPM. REQUESTED TO BE PLACED ON BIPAP, C/O SOB. 02 SAT KEPT ABOVE 92%. VISUAL C DEVELOPER ALSO AWARE OF MEDS FOUND ON PT'S PURSE LAST NIGHT AND SENT TO PHARMACY. WILL CLOSELY MONITOR.
--- NOTE | 2017-07-01 09:36 | NUR ---
RN NOTES PT PLACED ON NPO. PT HIGH RISK FOR ASPIRATION. PT DROWSY/LETHARGIC. CELESTINA REYNOLDS NOTIFIED.
[2017-07-01] MEDS ORDERED: POTASSIUM CHLORIDE 20 MEQ TAB.PRT.SR PO SCH (10:00)
[2017-07-01] MEDS ORDERED: FUROSEMIDE 40 MG/4 ML VIAL IV ONE (10:30)
--- NOTE | 2017-07-01 11:20 | NUR ---
RN NOTES SEEN AND EXAMINED BY DR. YUEN. AWARE THAT PT PLACED ON BIPAP FOR SOB. AWARE OF ABG RESULT WHEN PT ON NON-REBREATHER. HOB ELEVATED. WILL CLOSELY MONITOR.
[2017-07-01 12:14] LABS: *SPE A/G RATIO 1.2 (0.7-1.7); *SPE ALBUMIN 3.1 g/dL (2.9-4.4); *SPE ALPHA-1-GLOBULIN 0.4 g/dL (0.0-0.4); *SPE ALPHA-2-GLOBULIN 0.7 g/dL (0.4-1.0); *SPE BETA GLOBULIN 0.7 g/dL (0.7-1.3); *SPE GLOBULIN, TOTAL 2.5 g/dL (2.2-3.9); *SPE M-SPIKE Not Observed g/dL (Not Observed); *SPEGAMMA GLOBULIN 0.7 g/dL (0.4-1.8)
[2017-07-01] MEDS: ATORVASTATIN 10 MG TABLET PO SCH (12:33)
[2017-07-01] MEDS: POTASSIUM CL. PREMIX PERIPHER. 50 ML IV SCH ×4 (13:20→16:18)
[2017-07-01] MEDS: PANTOPRAZOLE 40 MG VIAL IV SCH (14:23)
[2017-07-01 17:46] LABS: HEMOGLOBIN 9.8 g/dL (11.5-14.8)
[2017-07-01] MEDS: FUROSEMIDE 40 MG/4 ML VIAL IV SCH (18:23)
[2017-07-01] MEDS ORDERED: ALPRAZOLAM 0.25 MG TABLET PO PRN (18:30)
[2017-07-01] MEDS ORDERED: ZOLPIDEM TARTRATE 5 MG TABLET PO PRN (18:30)
--- NOTE | 2017-07-01 19:00 | NUR ---
RN CLOSING NOTES PT ON NON-REBREATHER. HOB ELEVATED. DENIES ANY PAIN. IV LINES IN PLACE. FC IN PLACE. KEPT CLEAN AND DRY. REPOSITIONED Q2. KEPT CLEAN AND DRY. ALL NEEDS ATTENDED AND MET. WILL ENDORSE FOR CONTINUITY OF CARE.
--- NOTE | 2017-07-01 19:50 | NUR ---
MUNICIPAL COURT JUDGE. INITIAL ASSESSMENT. RECEIVED THE PT REST ON THE BED. AWAKE, ALERT, FOLLOW COMMANDS. LETHARGIC,LOADING AND UNLOADING SUPERVISOR SHOWING NSR, IV RT UPPER ARM MID LINE. TKO RUNNING. HOB ELEVATED. OXYGEN 15L VIA MASK. SAT 99%. FC PATENT. URINE DRAINING. TURN AND REPOSITION Q2H. WILL CONTINUE TO MONITOR VITALS.
[2017-07-01] MEDS: VANCOMYCIN 1.5 GM in IV D5W 500 ML IV SCH (20:53)
[2017-07-01] MEDS: ENOXAPARIN SODIUM 40 MG/0.4 ML DISP.SYRIN SQ SCH (20:53)
[2017-07-02] VITALS (25 sets, daily range): BP systolic 124–182; BP diastolic 42–98
--- NOTE | 2017-07-02 00:29 | NUR ---
PT PLACED ON BIPAP. WILL CONTINUE TO MONITOR. Addendum: 07/02/17 at 0029 by HARRISON HILL RT Amended: Links added.
[2017-07-02] MEDS ORDERED: IV NS 0.9% 250 ML IV PRN (01:00)
--- NOTE | 2017-07-02 01:03 | NUR ---
PT REMOVED HER BIPAP. PT IS BACK ON NRB. WILL CONTINUE TO MONITOR. Addendum: 07/02/17 at 0104 by HARRISON HILL RT Amended: Links added.
--- NOTE | 2017-07-02 03:36 | NUR ---
FISHER HOOP NET. AM CARE. ORAL CAR, BED BATH GIVEN. LINEN CHANGED. REMAINING SAME OXYGEN 15L VIA NON REBREATHER TOLERATED WELL SAT 98%, SQUADRON WORKER SHOWING NSR, IV RT UPPER ARM MID LINE TKO RUNNING. FC PATENT. URINE DRAINING. HOB ELEVATED TURN AND REPOSITION Q2H, WILL CONTINUE TO MONITOR VITALS.
[2017-07-02 05:09] LABS: BASOPHILS % (AUTO) 0.1 % (0.0-2.0); EOSINOPHILS # (AUTO) 0.1 /CMM (0.0-0.7); HEMATOCRIT 26 % (33-45); HEMOGLOBIN 8.6 g/dL (11.5-14.8); LYMPHOCYTES # (AUTO) 1.3 /CMM (0.8-4.8); MEAN CORPUSCULAR HEMOGLOBIN 26 PG (26.0-33.0); MEAN CORPUSCULAR HGB CONC 33 g/dl (31.0-36.0); MEAN CORPUSCULAR VOLUME 79 fL (82-100); MONOCYTES # (AUTO) 1.5 /CMM (0.1-1.30); MONOCYTES % (AUTO) 14.1 % (2.0-12.0); NEUTROPHILS # (AUTO) 7.8 /CMM (1.8-8.9); NEUTROPHILS % (AUTO) 72.8 % (43.0-81.0); PLATELET COUNT (AUTO) 274 /CMM (150-450); RDW COEFFICIENT OF VARIATION 18.8 (11.5-15.0); WHITE BLOOD COUNT (AUTO) 10.6 K/uL (4.3-11.0)
[2017-07-02] MEDS: ACETAMINOPHEN 325 MG TABLET PO SCH ×3 (05:15→16:46)
[2017-07-02] MEDS: PIPERACILLIN /TAZOBACTAM 3.375 G in IV NS 0.9% 50 ML IV SCH ×3 (05:15→17:19)
[2017-07-02 05:28] LABS: CARBON DIOXIDE 33 mmol/L (21-32); CHLORIDE 102 mmol/L (98-107); GLUCOSE 92 mg/dL (74-106); SODIUM SERUM 144 mmol/L (136-145); UREA NITROGEN, BLOOD 9 mg/dL (7-18)
[2017-07-02 05:32] LABS: POTASSIUM 2.4 mmol/L (3.5-5.1)
[2017-07-02] MEDS ORDERED: POTASSIUM CHLORIDE 10 MEQ TABLET.SA PO ONE (06:30)
--- NOTE | 2017-07-02 06:30 | NUR ---
SLIME PLANT OPERATOR HELPER. POTASSIUM 2.4. CALLED CRYSTAL GAZER KATHYA. NEW ORDER RECEIVED, POTASSIUM 60 MEQ PO. ONCE
--- NOTE | 2017-07-02 07:45 | NUR ---
ICU/RN - Initial Notes Received pt in bed, lethargic and disoriented. Constantly removing non-rebreather mask, despite many instructions to keep on and importance of oxygen. While off NRB mask, pt desaturates to 77%. Pt reoriented to date/time and place. Denies pain or discomfort. SR 80s on tele monitor. Acosta catheter intact draining urine to gravity. Safety and comfort measures in place. Will continue to monitor pt closely.
[2017-07-02] MEDS: METOPROLOL SUCCINATE 25 MG TAB.SR.24H PO SCH ×2 (08:01→16:15)
[2017-07-02] MEDS: AMLODIPINE BESYLATE 10 MG TABLET PO SCH (08:01)
[2017-07-02] MEDS: BENICAR 40 MG PO SCH (08:01)
[2017-07-02] MEDS: AMIODARONE HCL 200 MG TABLET PO SCH (08:01)
[2017-07-02] MEDS: LACTOBACILLUS RHAMNOSUS GG 1 EACH CAP.SPRINK PO SCH ×2 (08:02→16:15)
[2017-07-02] MEDS: ASPIRIN 81 MG TAB.CHEW PO SCH (08:02)
[2017-07-02] MEDS: FUROSEMIDE 40 MG/4 ML VIAL IV SCH ×2 (08:02→16:15)
[2017-07-02] MEDS: FERROUS SULFATE (325 MG) 325 MG/TAB TABLET PO SCH ×2 (08:02→16:15)
--- NOTE | 2017-07-02 08:10 | NUR ---
ICU/RN - Notes AM medications administered as ordered. Pt able to swallow whole pills one at a time. No s/s of aspiration noted.
--- NOTE | 2017-07-02 08:45 | NUR ---
ICU/RN - Notes Pt assisted onto bedside commode. Bowel movement noted. Bed bath given. Assisted patient back to bed, reminding pt to keep NRB mask on.
[2017-07-02] MEDS: METFORMIN 500 MG TABLET PO SCH ×2 (08:50→16:01)
[2017-07-02] MEDS: DOXYCYCLINE 100 MG in IV NS 0.9% 100 ML IV SCH (08:59)
[2017-07-02] MEDS: POTASSIUM CL. PREMIX PERIPHER. 50 ML IV SCH ×8 (10:22→21:38)
[2017-07-02] MEDS: hydrALAZINE HCL IV 20 MG VIAL IV PRN (10:59)
[2017-07-02 11:11] LABS: *ANCANTIMYELOPEROXIDASE (MPO) <9.0 U/mL (0.0-9.0); *ANCANTIPROTEINASE 3 (PR-3) AB <3.5 U/mL (0.0-3.5)
[2017-07-02] MEDS: ATORVASTATIN 10 MG TABLET PO SCH (12:00)
--- NOTE | 2017-07-02 12:45 | NUR ---
ICU/RN - Notes Pt's granddaughter Stacy and friend Otoniel Roblero at bedside. Updates provided regarding plan of care. Also spoke with pt's daughter Marianne via telephone, with updates also provided.
[2017-07-02 12:56] LABS: ABG BASE EXCESS 10.4 mmol/L; ABG PCO2 43.4 mmHg (35.0-45.0); ABG PH 7.516 (7.350-7.450); ABG PO2 61.6 mmHg (75.0-100.0); AaDO2 318.5 mmHg; COHb 0.3 % (0.5-1.5); MetHb 0.4 % (0.0-1.5); O2Hb 90.4 % (94.0-97.0); SITE, ABG Right Radial; VENT MODE, BG SIMPLE MASK
--- NOTE | 2017-07-02 13:15 | NUR ---
ICU/RN - Notes ABG results relayed to Dr Trevino. Per okay to keep on 10Lpm via simple mask.
[2017-07-02] MEDS: VANCOMYCIN 1.5 GM in IV D5W 500 ML IV SCH (13:19)
[2017-07-02] MEDS: PANTOPRAZOLE 40 MG VIAL IV SCH (13:30)
--- NOTE | 2017-07-02 14:15 | NUR ---
ICU/RN - Notes Dr Sterling Urbina's office called [phone] and faxed Authorization for disclosure of health information to obtain medical records as requested by Dr Corina Gold.
[2017-07-02 14:20] LABS: *ANCA ATYPICAL p-ANCA <1:20 titer (Neg:<1:20); *ANCA CYTOPLASMIC (C-ANCA) <1:20 titer (Neg:<1:20); *ANCA PERINUCLEAR (P-ANCA) <1:20 titer (Neg:<1:20)
[2017-07-02] MEDS ORDERED: OXYMETAZOLINE HCL NASAL SPRAY 30 ML BOTTLE NS PRN (14:30)
--- NOTE | 2017-07-02 15:25 | NUR ---
ICU/RN - Notes Followed up with Dr Sterling Urbina's office for record request per Dr Corina Gold. Per office, will information in send in 1-2 days. Explained urgent need for records however center receptionist states "We are busy and I am leaving in 30 minutes. I will work on it first thing tomorrow morning."
[2017-07-02] MEDS: MAG HYDROX/AL HYDROX/SIMETH 30 ML UDC PO PRN ×2 (15:32→21:38)
--- NOTE | 2017-07-02 16:26 | NUR ---
ICU/RN - Notes Pt still constantly removes oxygen mask despite many instructions and explanations to keep on. Family at bedside for further reinforcement. Pt desaturates to 77-80's when off oxygen.
--- NOTE | 2017-07-02 16:35 | NUR ---
ICU/RN - Notes Pt complains of abdominal discomfort and gas. Maalox given with no relief. MOM given at this time.
--- NOTE | 2017-07-02 16:46 | NUR ---
ICU/RN - Notes Tylenol administered at this time, pt complains of back pain.
[2017-07-02] MEDS: LIDOCAINE 5% (PATCH) 1 EA PATCH TP SCH (17:15)
--- NOTE | 2017-07-02 19:30 | NUR ---
STEEL SHOT HEADER OPERATOR NOTED PT YELLING OUT HELLO WITH CALL LIGHT NEX TO HERSELF. PT ALERT ORIENTED TO PLACE AND SITUATION. EXPLAINED TO PT THE IMPORTANCE OF USING CALL LIGHT OPPOSED TO JUST CALLING OUT. PT VERBALIZED UNDERSTANDING. PT DECLINED TO BE REPOSITIONED. PT REQUESTED A WARM BLANKET AND THE THERMOSTAT TO BE INCREASED TO 80. PT GIVEN WATER.
--- NOTE | 2017-07-02 20:00 | NUR ---
AREA DEVELOPMENT MANAGER PT USED CALL LIGHT; C/O SHE WAS TOO COLD. OFFERED HER SOCKS. NO TEMP AT THIS TIME. PT ASKING IF FAN IS ON; FAN IS OFF. PT DECLINED TO BE REPOSITIONED. PT REQUESTED SOMETHING FOR HER DRY LIPS. GAVE PT MOISTURIZER.
--- NOTE | 2017-07-02 20:30 | NUR ---
PLUMBER ASSISTANT PT SHOUTING OUT PRANAY; REEDUCATED ON USE OF CALL LIGHT; PT REQUESTED TISSUES AND MORE WATER. Addendum: 07/02/17 at 2125 by MICA CAICEDO RN PT HAS REMOVED SIMPLE MASK MULTIPLE TIMES WITH SP02 IN THE 80s; EXPLAINED TO PT THE IMPORTANCE OF THE SIMPLE MASK TO REMAIN ON; PT RESPONDED IF I KEEP REMOVING IT I WILL . ASKED PT TO CALL NURSE IF SHE NEEDS TO REMOVE MASK.
[2017-07-02] MEDS ORDERED: DOXYCYCLINE HYCLATE (100 MG) 100 MG TABLET PO SCH (21:00)
--- NOTE | 2017-07-02 21:00 | NUR ---
DIE ENGRAVER ASSISTED PT TO BEDSIDE COMMODE; PT UNABLE TO GET OUT OF BED BY HERSELF; PT UNABLE TO MOVE BUE ON HER OWN. PT UNABLE TO CLEAN HERSELF WHEN HAVING A BOWEL MOVEMENT. DISCUSSED WITH PT SHE WILL RECEIVE BED BATH AND LINEN CHANGE WELL AMBIEN AT 2145. PT AGREED TO PLAN OF CARE.
[2017-07-02] MEDS: ENOXAPARIN SODIUM 40 MG/0.4 ML DISP.SYRIN SQ SCH (21:41)
--- NOTE | 2017-07-02 21:44 | NUR ---
CNC PROGRAMMER PT NOTED WITH SPO2 71%; FOUND PT WITH MASK OFF; ASKED PT WHY SHE REMOVED IT. STATES SHE DOES NOT KNOW HOW TO PUT IT ON. ASKED PT TO NOT REMOVE MASK; EXPLAINED TO PT AMBIEN CAN NOT BE GIVEN TO HER WITH SATURATION IN THE 70s; PT VERBALIZED UNDERSTANDING.
[2017-07-02] MEDS: ALBUTEROL FS 2.5 MG/0.5 ML VIAL.NEB NEB PRN (22:25)
[2017-07-02] MEDS: IPRATROPIUM NEB FS 0.5 MG/2.5 ML AMPUL.NEB NEB PRN (22:25)
[2017-07-02] MEDS: ZOLPIDEM TARTRATE 10 MG TABLET PO PRN (23:03)
[2017-07-02] MEDS ORDERED: DOXYCYCLINE 100 MG VIAL ONE (23:37)
[2017-07-03] VITALS (22 sets, daily range): BP systolic 125–161; BP diastolic 56–92
--- NOTE | 2017-07-03 00:30 | NUR ---
HALL MANAGER PT REMOVED MASK; NOTED WITH BLUE LIPS AGITATED AND COMBATIVE; PT PLACED ON NRB. NONCOMPLIANT WITH CARE AT THIS TIME.
--- NOTE | 2017-07-03 02:00 | NUR ---
CONE BAKER MACHINE PT CONSTANTLY REMOVING OXYGEN; PT A/O x4; PT NON COMPLIANT WITH CARE WANTS TO GET OUT OF BED TO URINATE; PT HAS KEATING IN PLACE. CONTINUE TO MONITOR.
--- NOTE | 2017-07-03 03:00 | NUR ---
RHEOLOGIST PT CONTINUES TO REMOVE OXYGEN; PT WANTS TO GET OUT OF BED TO USE RESTROOM. PT UNSTEADY ON HER FEET; PT REQUIRES TWO PERSON FULL MAX ASSIST TO USE BEDSIDE COMMODE. PT STATES SHE WILL ONLY PUT OXYGEN ON WHEN SHE GETS WHAT SHE WANTS. EXPLAINED TO PT THE IMPORTANCE TO ADHERE TO DOCTORS ORDERS.
[2017-07-03 04:11] LABS: BASOPHILS % (AUTO) 0.1 % (0.0-2.0); EOSINOPHILS # (AUTO) 0.1 /CMM (0.0-0.7); EOSINOPHILS % (AUTO) 0.9 % (0.0-6.0); HEMATOCRIT 27 % (33-45); HEMOGLOBIN 8.8 g/dL (11.5-14.8); LYMPHOCYTES # (AUTO) 1.6 /CMM (0.8-4.8); LYMPHOCYTES % (AUTO) 12.1 % (20.0-44.0); MEAN CORPUSCULAR HEMOGLOBIN 26 PG (26.0-33.0); MEAN CORPUSCULAR HGB CONC 32 g/dl (31.0-36.0); MEAN CORPUSCULAR VOLUME 79 fL (82-100); MONOCYTES # (AUTO) 1.7 /CMM (0.1-1.30); MONOCYTES % (AUTO) 12.5 % (2.0-12.0); NEUTROPHILS % (AUTO) 74.4 % (43.0-81.0); PLATELET COUNT (AUTO) 330 /CMM (150-450); RDW COEFFICIENT OF VARIATION 18.9 (11.5-15.0); RED BLOOD CELL COUNT(AUTO) 3.42 MIL/uL (4.0-5.2); WHITE BLOOD COUNT (AUTO) 13.4 K/uL (4.3-11.0)
[2017-07-03 04:28] LABS: CARBON DIOXIDE 32 mmol/L (21-32); CHLORIDE 98 mmol/L (98-107); CREATININE 1.1 mg/dL (0.6-1.3); GLUCOSE 103 mg/dL (74-106); SODIUM SERUM 139 mmol/L (136-145); UREA NITROGEN, BLOOD 13 mg/dL (7-18)
[2017-07-03 04:42] LABS: POTASSIUM 2.7 mmol/L (3.5-5.1)
--- NOTE | 2017-07-03 04:56 | NUR ---
FINANCIAL SALES ASSISTANT PT CONSTANTLY REMOVING OXYGEN. DESATURATING. PROVIDING EDUCATION TO PT ABOUT LOW SATURATION. CONTINUE TO MONITOR.
[2017-07-03 04:57] LABS: INR 0.91 (0.87-1.13)
--- NOTE | 2017-07-03 05:00 | NUR ---
DOCUMENTATION BILLING CLERK LIDOCAINE PATCH REMOVED.
[2017-07-03] MEDS: PIPERACILLIN /TAZOBACTAM 3.375 G in IV NS 0.9% 50 ML IV SCH ×6 (05:26→23:14)
[2017-07-03] MEDS: ACETAMINOPHEN 325 MG TABLET PO SCH ×5 (05:26→23:15)
--- NOTE | 2017-07-03 05:33 | NUR ---
MANAGER RELATIONSHIP RCD CALL FROM PTS DAUGHTER; UPDATED ON PTS CONDITION. DAUGHTER ASKING ABOUT ANXIETY MEDICATIONS FOR PT THAT SHE DISCUSSED WITH PREVIOUS MD; EXPLAINED TO DAUGHTER THAT ONLY LIMITED INFORMATION CAN BE GIVEN TO HER. PT DENIED ANY ANXIETY DURING SHIFT.
--- NOTE | 2017-07-03 05:45 | NUR ---
BLOCK MECHANIC PER PREVIOUSLY DISCUSSED WITH PT BL SOFT WRIST RESTRAINTS PLACED ON PT SHE KEEPS ON REMOVING OXYGEN; PT STATES SHE DID NOT REMOVE OXYGEN. AGREED TO BL SOFT WRIST RESTRAINTS SO THAT OXYGEN MASK DOES NOT FALL OFF.
--- NOTE | 2017-07-03 06:00 | NUR ---
PHARMACEUTICAL SERVICE REPRESENTATIVE BL SOFT WRIST RESTRAINTS REMOVED. ASSISTED PT TO BSC. PT COMPLIANT AT THIS TIME.
--- NOTE | 2017-07-03 06:30 | NUR ---
ENGINEER CONDUCTOR PT CALLED DAUGHTER TO TELL HER SHE WAS BEING HELD HOSTAGE AGAINST HER WILL AND HAD BEEN TIED TO THE BEDPOST. DAUGHTER REASSURED PT ON SITUATION AND ENCOURAGED PT TO ADHERED TO DOCTORS ORDERS.
--- NOTE | 2017-07-03 07:30 | NUR ---
RATE MANAGER RECEIVED PATIENT AWAKE SITTING ON BED ON NON REBREATHING MASK AT 15 LITERS SATURATING 98% PATIENT IS VERY NEEDY ALERT ORIENTED X 3, WITH EPISODES OF FORGETFULNESS CRACKLES HEARD UPON AUSCULTATION MAINTAINED ON NPO WITH KEATING CATHETER DRAINING TO UROBAG, YELLOWISH IN COLOR
[2017-07-03] MEDS: ALBUTEROL FS 2.5 MG/0.5 ML VIAL.NEB NEB PRN ×2 (07:53→20:08)
[2017-07-03] MEDS: IPRATROPIUM NEB FS 0.5 MG/2.5 ML AMPUL.NEB NEB PRN ×2 (07:53→20:08)
[2017-07-03] MEDS: AMIODARONE HCL 200 MG TABLET PO SCH (08:13)
[2017-07-03] MEDS: ASPIRIN 81 MG TAB.CHEW PO SCH (08:14)
[2017-07-03] MEDS: BENICAR 40 MG PO SCH (08:14)
[2017-07-03] MEDS: METFORMIN 500 MG TABLET PO SCH ×2 (08:14→16:42)
[2017-07-03] MEDS: LACTOBACILLUS RHAMNOSUS GG 1 EACH CAP.SPRINK PO SCH ×2 (08:15→16:42)
[2017-07-03] MEDS: FUROSEMIDE 40 MG/4 ML VIAL IV SCH (08:15)
[2017-07-03] MEDS: AMLODIPINE BESYLATE 10 MG TABLET PO SCH (08:15)
[2017-07-03] MEDS: METOPROLOL SUCCINATE 25 MG TAB.SR.24H PO SCH ×2 (08:15→16:42)
[2017-07-03] MEDS: FERROUS SULFATE (325 MG) 325 MG/TAB TABLET PO SCH ×2 (08:16→16:43)
[2017-07-03] MEDS: DOXYCYCLINE 100 MG in IV NS 0.9% 100 ML IV SCH ×3 (08:59)
--- NOTE | 2017-07-03 10:00 | NUR ---
WELDING MACHINE OPERATOR SUBMERGED ARC POTASSIUM IS LOW REPLACEMENT OF POTASSIUM STARTED MONITORED CLOSELY
[2017-07-03] MEDS: POTASSIUM CL. PREMIX PERIPHER. 50 ML IV SCH ×6 (10:58→16:45)
[2017-07-03] MEDS: ATORVASTATIN 10 MG TABLET PO SCH (11:51)
[2017-07-03] MEDS: methylPREDNISolone SOD SUCC 125 MG/2ML VIAL IV SCH ×3 (11:51→16:42)
[2017-07-03] MEDS: VANCOMYCIN 1.5 GM in IV D5W 500 ML IV SCH (14:00)
[2017-07-03] MEDS: PANTOPRAZOLE 40 MG VIAL IV SCH (14:00)
--- NOTE | 2017-07-03 14:00 | NUR ---
GRINDER SET UP OPERATOR JIG PATIENT IS ABLE TO SIT UP ON A CHAIR WITH ASSIST SHE'S MORE COOPERATIVE MONITORED CLOSELY
[2017-07-03 16:16] LABS: QFT MITOGEN VALUE 0.54 IU/mL (.); QFT TB AG MINUS NIL VALUE 0.01 IU/mL (.); QFT TB AG VALUE 0.07 IU/mL (.); QFT TB GOLD Indeterminate (Negative)
[2017-07-03] MEDS ORDERED: SIMETHICONE SUSP 40 MG/0.6 ML BOTTLE PO PRN (16:30)
[2017-07-03] MEDS: LIDOCAINE 5% (PATCH) 1 EA PATCH TP SCH (16:44)
--- NOTE | 2017-07-03 19:30 | NUR ---
STRUCTURAL METAL WORKER: RECEIVED PT WATCHING TV, ALERT AND ORIENTED X 2-3. ON 15L 02 VIA NRM WT NO ACUTE DISTRESS. HOWEVER, ONCE PT REMOVES MASK, DESATURATION IS NOTED IN THE 80s. SITTER AT BEDSIDE TO REMIND SITTER TO PLACE MASK AT ALL TIMES. SR ON LAST REMODELER REPAIRER. AFEBRILE. NO C/O PAIN OR EVIDENCE OF DISCOMFORT. F/C PATENT AND INTACT WT CLEAR YELLOW URINE TO GRAVITY. ALAN MIDLINE INTACT TKO. HOB AT 45 DEGREES. SAFETY PRECAUTION NOTED. WILL CONTINUE TO MONITOR.
[2017-07-03] MEDS: ENOXAPARIN SODIUM 40 MG/0.4 ML DISP.SYRIN SQ SCH (20:28)
--- NOTE | 2017-07-03 23:00 | NUR ---
BECK TENDER: PT SAID SHE'S READY TO GO TO SLEEP AND REQUESTED TO BE ON NASAL CANNULA INSTEAD OF NRM. PLACED ON 8L 02 VIA NC WT BUBBLE HUMIDIFIER. WILL CONTINUE TO MONITOR.
[2017-07-03] MEDS: ZOLPIDEM TARTRATE 10 MG TABLET PO PRN (23:16)
[2017-07-04] VITALS (20 sets, daily range): BP systolic 48–157; BP diastolic 33–82
--- NOTE | 2017-07-04 01:00 | NUR ---
FIXTURE FABRICATOR REPAIRER: PT WAS ASLEEP THEN SUDDENLY WOKE UP AND BECAME MORE DISORIENTED. WANT TO GET OUT OF BED AND STATED, "I WANT TO GO BACK TO BED." SITTER AT BEDSIDE REORIENTED PT AND TOLD HER SHE'S ALREADY IN BED. PT THEN BECAME AGITATED. PRIMARY AND CHARGE NURSES WENT TO ASSIST SITTER. RELAXATION AND DISTRACTION TECHNIQUES RENDERED WT GOOD EFFECT. PT SOONER BECAME CALM AND COOPERATIVE. WILL CONTINUE TO MONITOR. TOLERATING 8L 02 VIA NC WT BUBBLE HUMIDIFIER WT 02 SAT 92% AND ABOVE. SAFETY PRECAUTION NOTED AT ALL TIMES.
[2017-07-04] MEDS: HYDROCODONE/APAP 5/325MG 1 EACH TABLET PO PRN ×2 (02:58→12:18)
[2017-07-04 03:10] LABS: BETA-2 MICROGLOBULIN, SERUM 3.3 mg/L (0.6-2.4)
[2017-07-04 05:14] LABS: CARBON DIOXIDE 30 mmol/L (21-32); CHLORIDE 98 mmol/L (98-107); CREATININE 1.3 mg/dL (0.6-1.3); GLUCOSE 230 mg/dL (74-106); POTASSIUM 3.1 mmol/L (3.5-5.1); SODIUM SERUM 137 mmol/L (136-145); UREA NITROGEN, BLOOD 19 mg/dL (7-18)
[2017-07-04] MEDS ORDERED: IV NS 0.9% 250 ML IV PRN (06:00)
[2017-07-04] MEDS: PIPERACILLIN /TAZOBACTAM 3.375 G in IV NS 0.9% 50 ML IV SCH ×3 (06:23→17:51)
--- NOTE | 2017-07-04 06:30 | NUR ---
TITLE I PARAPROFESSIONAL: NO SIGNIFICANT ARTHUR. STILL WT DISORIENTATION WHEN PT WAKES UP FROM DEEP SLEEP. REORIENTED WT MINIMAL HELP. SAFETY PRECAUTIONS NOTED AT ALL TIMES. REMAINS ON 8L 02 VIA NC WT BUBBLE HUMIDIFIER. O2 SAT DESATS. IN THE HIGH 80s AT TIMES BUT GOES BACK 92% AND ABOVE. SAFETY PRECAUTION NOTED AT ALL TIMES.
[2017-07-04] MEDS: ACETAMINOPHEN 325 MG TABLET PO SCH ×3 (06:32→17:49)
--- NOTE | 2017-07-04 07:30 | NUR ---
ICU/RN: Pt A&Ox4, needy and anxious. Reinforced relaxation techniques. Sitter at bedside for safety, per NOC shift, pt with periods of restlessness and confusion. Agreeable with POC. Will cont to monitor pt.
--- NOTE | 2017-07-04 08:15 | NUR ---
ICU/RN: Pt requested to sit in chair for breakfast, transferred to chair with assistance. SOB noted with periods of desaturation in high 80's to low 90's SPO2. Per pt "I feel like I can breathe better compared to yesterday." ALAN ML patent flushed. Current pain regimen effective. Will cont to monitor pt.
[2017-07-04] MEDS: METFORMIN 500 MG TABLET PO SCH ×2 (08:48→17:50)
[2017-07-04] MEDS: AMIODARONE HCL 200 MG TABLET PO SCH (08:48)
[2017-07-04] MEDS: FERROUS SULFATE (325 MG) 325 MG/TAB TABLET PO SCH ×2 (08:49→17:49)
[2017-07-04] MEDS: ASPIRIN 81 MG TAB.CHEW PO SCH (08:49)
[2017-07-04] MEDS: METOPROLOL SUCCINATE 25 MG TAB.SR.24H PO SCH ×2 (08:52→17:50)
[2017-07-04] MEDS: AMLODIPINE BESYLATE 10 MG TABLET PO SCH (08:52)
[2017-07-04] MEDS: LACTOBACILLUS RHAMNOSUS GG 1 EACH CAP.SPRINK PO SCH ×2 (08:52→17:49)
[2017-07-04] MEDS: methylPREDNISolone SOD SUCC 125 MG/2ML VIAL IV SCH ×3 (08:52→17:49)
[2017-07-04] MEDS: BENICAR 40 MG PO SCH (08:56)
--- NOTE | 2017-07-04 09:30 | NUR ---
ICU/RN: Dr Warner at bedside; respiratory discussed, pt currently on NC 4L/min sats 94-96% at rest.
[2017-07-04 09:53] LABS: HEMATOCRIT 27 % (33-45); HEMOGLOBIN 8.5 g/dL (11.5-14.8); LYMPHOCYTES % (AUTO) 12.5 % (20.0-44.0); MEAN CORPUSCULAR HEMOGLOBIN 25 PG (26.0-33.0); MEAN CORPUSCULAR HGB CONC 31 g/dl (31.0-36.0); MEAN CORPUSCULAR VOLUME 79 fL (82-100); MONOCYTES % (AUTO) 6.2 % (2.0-12.0); NEUTROPHILS % (AUTO) 81.3 % (43.0-81.0); PLATELET COUNT (AUTO) 400 /CMM (150-450); RDW COEFFICIENT OF VARIATION 18.2 (11.5-15.0); RED BLOOD CELL COUNT(AUTO) 3.43 MIL/uL (4.0-5.2)
--- NOTE | 2017-07-04 10:15 | NUR ---
ICU/RN: Berry Alvarez, DATA COORDINATOR at bedside. Discussed POC with pt. Per DATA COORDINATOR ok to downgrade to tele if respiratory status stable in afternoon.
--- NOTE | 2017-07-04 11:30 | NUR ---
ICU/RN: Acosta catheter dc'd as ordered, pt tolerated well. Total of 550 output of clear yellow urine. Educated pt, verbalized understanding.
[2017-07-04] MEDS: POTASSIUM CHLORIDE 20 MEQ TAB.PRT.SR PO SCH ×2 (11:45→12:18)
[2017-07-04] MEDS: ATORVASTATIN 10 MG TABLET PO SCH (12:18)
--- NOTE | 2017-07-04 14:00 | NUR ---
ICU/RN: Pt assisted from bed to chair; pt tolerates well. Participates in ADLs as tolerated.
[2017-07-04] MEDS: PANTOPRAZOLE 40 MG VIAL IV SCH (14:08)
[2017-07-04] MEDS: VANCOMYCIN 1.5 GM in IV D5W 500 ML IV SCH (14:08)
--- NOTE | 2017-07-04 16:10 | NUR ---
ICU/RN: Pt transferred to [facility] Rm 103 in stable condition. All paperwork and belongings with pt, accompanied by sitter. Bedside report given to NORTH Perez for ARTHUR.
--- NOTE | 2017-07-04 16:30 | NUR ---
JOSELITO RN NOTES: RECEIVED PATIENT FROM ICU, DX SEPSIS, UTI, PNA, AAO X 3, ON 5L O2 NC, NOT IN ANY DISTRESS, TELEMETRY READS SR HR 83, DENIES PAIN AT THIS TIME, ALAN MIDLINE AND RT FA G 22 IV ACCESS, BOTH FLUSHES WELL, BOTH SITES CLEAR. VANCO IV RUNNING TO RFA. CARDIAC DIET, USES BSC, 1:1 SITTER AT BEDSIDE, ISOLATION PRECAUTION OBSERVED. BED LOW LOCKED, SAFETY MEASURES IN PLACE. CALL LIGHT WITHIN REACH. WILL CONT TO MONITOR.
[2017-07-04] MEDS: LIDOCAINE 5% (PATCH) 1 EA PATCH TP SCH (17:50)
--- NOTE | 2017-07-04 19:33 | NUR ---
JOSELITO RN NOTES NO SIGNIFICANT CHANGE IN CONDITION. ALL NEEDS MET. VANCO IV STILL ONGOING. ZOSYN IV TO FOLLOW. VS WNL. WILL ENDORSE TO NEXT SHIFT FOR ARTHUR.
--- NOTE | 2017-07-04 19:54 | NUR ---
JOSELITO RN NOTES: RECEIVED PATIENT FROM AM SHIFT NURSE, MAYRA SEPSIS, AAO X 3, ON 5L O2 NC, NOT IN ANY DISTRESS, TELEMETRY READS SR HR 80'S, DENIES PAIN AT THIS TIME, ALAN MIDLINE AND RT FA G 22 IV ACCESS, BOTH FLUSHES WELL, BOTH SITES CLEAR. VANCO IV RUNNING TO RFA. 1:1 SITTER AT BEDSIDE, ISOLATION PRECAUTION OBSERVED. BED LOW LOCKED, SAFETY MEASURES IN PLACE. CALL LIGHT WITHIN REACH. WILL CONT TO MONITOR.
[2017-07-04] MEDS: ZOLPIDEM TARTRATE 10 MG TABLET PO PRN (21:21)
[2017-07-04] MEDS: ENOXAPARIN SODIUM 40 MG/0.4 ML DISP.SYRIN SQ SCH (21:21)
[2017-07-05] VITALS: BP 133/72
[2017-07-05] MEDS: PIPERACILLIN /TAZOBACTAM 3.375 G in IV NS 0.9% 50 ML IV SCH ×3 (00:03→11:13)
[2017-07-05] MEDS: ACETAMINOPHEN 325 MG TABLET PO SCH ×5 (00:10→23:26)
[2017-07-05 04:00] VITALS: BP 138/80
--- NOTE | 2017-07-05 06:02 | NUR ---
JOSELITO RN CLOSING NOTES: ENDORSED PATIENT TO AM SHIFT NURSE, AO X 3, ON 5L O2 NC, NOT IN ANY DISTRESS, TELEMETRY READS SR HR 70'S, DENIES PAIN AT THIS TIME, ALAN MIDLINE AND RT FA G 22 IV ACCESS, BOTH FLUSHES WELL, BOTH SITES CLEAR. 1:1 SITTER AT BEDSIDE, ISOLATION PRECAUTION OBSERVED. BED LOW LOCKED, SAFETY MEASURES IN PLACE. CALL LIGHT WITHIN REACH. WILL CONT TO MONITOR.
[2017-07-05 06:28] LABS: EOSINOPHILS # (AUTO) 0.1 /CMM (0.0-0.7); EOSINOPHILS % (AUTO) 0.6 % (0.0-6.0); HEMATOCRIT 27 % (33-45); HEMOGLOBIN 8.6 g/dL (11.5-14.8); MEAN CORPUSCULAR HEMOGLOBIN 26 PG (26.0-33.0); MEAN CORPUSCULAR HGB CONC 32 g/dl (31.0-36.0); MEAN CORPUSCULAR VOLUME 79 fL (82-100); MONOCYTES # (AUTO) 0.9 /CMM (0.1-1.30); MONOCYTES % (AUTO) 4.8 % (2.0-12.0); NEUTROPHILS % (AUTO) 83.6 % (43.0-81.0); PLATELET COUNT (AUTO) 505 /CMM (150-450); RDW COEFFICIENT OF VARIATION 18.9 (11.5-15.0); RED BLOOD CELL COUNT(AUTO) 3.34 MIL/uL (4.0-5.2)
[2017-07-05 06:52] LABS: CARBON DIOXIDE 27 mmol/L (21-32); CHLORIDE 102 mmol/L (98-107); CREATININE 1.2 mg/dL (0.6-1.3); GLUCOSE 156 mg/dL (74-106); POTASSIUM 3.1 mmol/L (3.5-5.1); SODIUM SERUM 140 mmol/L (136-145); UREA NITROGEN, BLOOD 21 mg/dL (7-18); VANCOMYCIN,TROUGH 21 ug/ml (12-20)
--- NOTE | 2017-07-05 07:45 | NUR ---
RN NOTES RECEIVED PT FROM DINKER, A&0X3, ON 5L NC SATING WELL NO SOB OR DISTRESS NOTED. SR ON THE TELE GONZALO. ALAN MIDLINE INTACT NO IVF.SITTER AT BEDSIDE. BED LOCKED AND IN LOWEST POSITION, CALL LIGHT WITHIN REACH, SIDE RAILS UPX3, WILL CONT TO GONZALO.
[2017-07-05 08:00] VITALS: BP 146/63
[2017-07-05] MEDS: BENICAR 40 MG PO SCH (08:28)
[2017-07-05] MEDS: methylPREDNISolone SOD SUCC 125 MG/2ML VIAL IV SCH ×2 (08:28→12:48)
[2017-07-05] MEDS: AMIODARONE HCL 200 MG TABLET PO SCH (08:29)
[2017-07-05] MEDS: LACTOBACILLUS RHAMNOSUS GG 1 EACH CAP.SPRINK PO SCH ×2 (08:29→16:24)
[2017-07-05] MEDS: METFORMIN 500 MG TABLET PO SCH ×2 (08:29→16:22)
[2017-07-05] MEDS: METOPROLOL SUCCINATE 25 MG TAB.SR.24H PO SCH ×2 (08:29→16:25)
[2017-07-05] MEDS: AMLODIPINE BESYLATE 10 MG TABLET PO SCH (08:30)
[2017-07-05] MEDS: ASPIRIN 81 MG TAB.CHEW PO SCH (08:30)
[2017-07-05] MEDS: FERROUS SULFATE (325 MG) 325 MG/TAB TABLET PO SCH ×2 (08:44→16:25)
[2017-07-05] MEDS: POTASSIUM CHLORIDE 20 MEQ TAB.PRT.SR PO SCH ×2 (10:34→11:14)
[2017-07-05 12:00] VITALS: BP 150/87
--- NOTE | 2017-07-05 12:06 | NUR ---
WOUND CARE CONSULT: PT IS CONTINENT AND AMBULATORY AT THIS TIME. Z GUARD IN USE FOR PERIANAL PROTECTION. PT REPORTS HAS BEEN HAVING LOOSE STOOLS. RECOMMENDATIONS MADE FOR DRY SKIN ON EXTREMITIES AND DISCUSSED WITH NURSING STAFF. WILL SEE PRN. Addendum: 07/05/17 at 1207 by CARLOS PACKER WNDNU Amended: Links added.
[2017-07-05] MEDS ORDERED: MINERAL OIL/PETROLATUM,WHITE 120 GM JAR TP PRN (12:30)
[2017-07-05] MEDS: HYDROCODONE/APAP 5/325MG 1 EACH TABLET PO PRN (12:47)
[2017-07-05] MEDS: ATORVASTATIN 10 MG TABLET PO SCH (12:48)
[2017-07-05] MEDS: MAG HYDROX/AL HYDROX/SIMETH 30 ML UDC PO PRN ×2 (13:30→20:24)
[2017-07-05] MEDS ORDERED: HYDROCORTISONE 0.5% CREAM 28.35 GM TUBE TP PRN (13:30)
[2017-07-05] MEDS: PANTOPRAZOLE 40 MG VIAL IV SCH (14:20)
--- NOTE | 2017-07-05 15:47 | NUR ---
PATIENT ROOM AIR SATURATION 85% AT REST.
[2017-07-05 16:00] VITALS: BP 168/74
[2017-07-05] MEDS: oxyCODONE HCL SR 10MG TAB.SR.12H PO SCH (16:23)
[2017-07-05] MEDS: LIDOCAINE 5% (PATCH) 1 EA PATCH TP SCH (16:25)
[2017-07-05] MEDS ORDERED: DIPHENOXYLATE HCL/ATROP SULF 1 UDTAB TABLET PO PRN (16:30)
[2017-07-05] MEDS ORDERED: DIPHENOXYLATE HCL/ATROP SULF 5 ML UDC PO PRN (16:30)
[2017-07-05] MEDS: VANCOMYCIN HCL 125 MG/2.5 ML ORAL.SUSP PO SCH ×2 (18:42→23:26)
--- NOTE | 2017-07-05 18:54 | NUR ---
RN NOTES PT REMAINED IN STABLE CONDITION THROUGHOUT THE SHIFT, ALL NEEDS MET. WILL ENDORSE TO ONCOMING SHIFT.
--- NOTE | 2017-07-05 19:00 | NUR ---
GIZZARD PULLER OPENING NOTES PT AWAKE AND RESTING IN BED. 1:1 SITTER AT BEDSIDE. NO COMPLAINTS OF SOB, OR DISTRESS AT THIS TIME. PT HAS A ALAN MIDLINE AND A RIGHT FA #22. PT IS TELE MONITORED. SAFETY PRECAUTIONS IN PLACE BED IN LOW, LOCKED POSITION, X2 SIDE RAILS UP, CALL LIGHT WITHIN REACH. WILL CONTINUE TO MONITOR.
[2017-07-05 20:00] VITALS: BP 166/77
[2017-07-05] MEDS: ENOXAPARIN SODIUM 40 MG/0.4 ML DISP.SYRIN SQ SCH (20:24)
--- NOTE | 2017-07-05 20:24 | NUR ---
RN NOTES PT REQUESTED PRN MAALOX WILL ADMINISTER AND CONTINUE TO MONITOR.
--- NOTE | 2017-07-05 21:00 | NUR ---
RN NOTES PT REFUSED LOVENOX. EDUCATED THE PT ON THE IMPORTANCE OF THE MEDICATION. PT CONTINUED TO REFUSE.
[2017-07-05 21:28] LABS: OCCULT BLOOD STOOL NEGATIVE (NEGATIVE)
[2017-07-05] MEDS: ZOLPIDEM TARTRATE 10 MG TABLET PO PRN (23:26)
--- NOTE | 2017-07-05 23:26 | NUR ---
RN NOTES PT REQUESTED PRN MINOR FOR SLEEP. WILL ADMINISTER AND CONTINUE TO MONITOR.
--- NOTE | 2017-07-06 | NUR ---
RN NOTES PT REFUSED 0000 VITAL SIGNS. PT HAD REQUESTED THAT IF SHE WERE SLEEPING TO NOT DISTURB HER.
[2017-07-06] MEDS: oxyCODONE HCL SR 10MG TAB.SR.12H PO SCH ×3 (02:58→21:17)
[2017-07-06 04:00] VITALS: BP 147/83
[2017-07-06] MEDS: VANCOMYCIN HCL 125 MG/2.5 ML ORAL.SUSP PO SCH ×4 (06:08→23:49)
[2017-07-06] MEDS: ACETAMINOPHEN 325 MG TABLET PO SCH ×4 (06:08→23:49)
--- NOTE | 2017-07-06 06:48 | NUR ---
PROGRAM DEVELOPMENT SPECIALIST CLOSING NOTES PT AWAKE AND RESTING IN BED. 1:1 SITTER AT BEDSIDE. NO COMPLAINTS OF SOB, OR DISTRESS AT THIS TIME. PT HAS A ALAN MIDLINE AND A RIGHT FA #22. PT IS TELE MONITORED SINUS RHYTHM RATE 77. SAFETY PRECAUTIONS IN PLACE BED IN LOW, LOCKED POSITION, X2 SIDE RAILS UP, CALL LIGHT WITHIN REACH. WILL ENDORSE TO DAY SHIFT NURSE FOR CONTINUITY OF CARE.
[2017-07-06 07:41] LABS: BASOPHILS % (AUTO) 0.1 % (0.0-2.0); EOSINOPHILS % (AUTO) 0.1 % (0.0-6.0); HEMATOCRIT 28 % (33-45); HEMOGLOBIN 8.8 g/dL (11.5-14.8); LYMPHOCYTES # (AUTO) 0.6 /CMM (0.8-4.8); LYMPHOCYTES % (AUTO) 4.5 % (20.0-44.0); MEAN CORPUSCULAR HEMOGLOBIN 26 PG (26.0-33.0); MEAN CORPUSCULAR HGB CONC 32 g/dl (31.0-36.0); MEAN CORPUSCULAR VOLUME 80 fL (82-100); MONOCYTES # (AUTO) 3.1 /CMM (0.1-1.30); MONOCYTES % (AUTO) 23.2 % (2.0-12.0); NEUTROPHILS # (AUTO) 9.7 /CMM (1.8-8.9); NEUTROPHILS % (AUTO) 72.1 % (43.0-81.0); PLATELET COUNT (AUTO) 619 /CMM (150-450); RDW COEFFICIENT OF VARIATION 18.8 (11.5-15.0); RED BLOOD CELL COUNT(AUTO) 3.44 MIL/uL (4.0-5.2); WHITE BLOOD COUNT (AUTO) 13.4 K/uL (4.3-11.0)
[2017-07-06 08:00] VITALS: BP 167/83
--- NOTE | 2017-07-06 08:00 | NUR ---
BLENDER HELPER NOTES RECEIVED PT ON BED SLEEPING. ALERT ORIENTED X4. IV ACCESS ALAN MIDLINE RUNNING WELL. HEAD OF BED ELEVATED. SIDE RAILS UP. CALL LIGHT WITHIN REACH. WILL CONTINUE TO MONITOR PT CLOSELY.
[2017-07-06 08:01] LABS: CALCIUM, SERUM 8.6 mg/dL (8.5-10.1); CARBON DIOXIDE 26 mmol/L (21-32); CHLORIDE 102 mmol/L (98-107); CREATININE 1.1 mg/dL (0.6-1.3); GLUCOSE 110 mg/dL (74-106); MAGNESIUM 1.7 mg/dL (1.8-2.4); PHOSPHORUS 3.8 mg/dL (2.5-4.9); SODIUM SERUM 140 mmol/L (136-145); UREA NITROGEN, BLOOD 17 mg/dL (7-18)
[2017-07-06 08:06] LABS: POTASSIUM 2.5 mmol/L (3.5-5.1)
--- NOTE | 2017-07-06 08:30 | NUR ---
SPEECH AND LANGUAGE CLINICIAN NOTES KATHYA OSCAR NOTIFIED REGARDING PT POTASSIUM LEVEL.
[2017-07-06] MEDS: POTASSIUM CHLORIDE 20 MEQ TAB.PRT.SR PO SCH ×3 (09:46→11:50)
[2017-07-06] MEDS: LACTOBACILLUS RHAMNOSUS GG 1 EACH CAP.SPRINK PO SCH ×2 (09:46→17:41)
[2017-07-06] MEDS: BENICAR 40 MG PO SCH (09:46)
[2017-07-06] MEDS: FERROUS SULFATE (325 MG) 325 MG/TAB TABLET PO SCH (09:46)
[2017-07-06] MEDS: ASPIRIN 81 MG TAB.CHEW PO SCH (09:47)
[2017-07-06] MEDS: METFORMIN 500 MG TABLET PO SCH ×2 (09:47→17:42)
[2017-07-06] MEDS: AMIODARONE HCL 200 MG TABLET PO SCH (09:52)
[2017-07-06] MEDS: METOPROLOL SUCCINATE 25 MG TAB.SR.24H PO SCH ×2 (09:52→17:42)
[2017-07-06] MEDS: AMLODIPINE BESYLATE 10 MG TABLET PO SCH (09:53)
[2017-07-06 10:37] LABS: EOSINOPHILS % (MANUAL) 1 % (0-4); LYMPHOCYTES % (MANUAL) 23 % (16-48); MONOCYTES % (MANUAL) 13 % (0-11.0); NEUTROPHILS % (MANUAL) 63 (42-76)
--- NOTE | 2017-07-06 11:03 | NUR ---
FOOD RUNNER NOTES PT REFUSING POTASSIUM SECOND DOSE. EXPLAINED THE RISK AND BENEFITS.
[2017-07-06] MEDS: MAG HYDROX/AL HYDROX/SIMETH 30 ML UDC PO PRN ×2 (11:50→22:44)
[2017-07-06] MEDS: ATORVASTATIN 10 MG TABLET PO SCH (11:51)
[2017-07-06 12:00] VITALS: BP 158/106
[2017-07-06] MEDS ORDERED: SIMETHICONE 80 MG TAB.CHEW PO PRN (14:00)
[2017-07-06] MEDS: LOPERAMIDE HCL (2 MG CAP) 2 MG CAPSULE PO PRN ×2 (14:08→21:17)
[2017-07-06] MEDS: Magnesium 1GM/D5W 100ML PREMIX 100 ML IV SCH ×2 (14:08→15:17)
[2017-07-06] MEDS: PANTOPRAZOLE 40 MG VIAL IV SCH (15:17)
[2017-07-06] MEDS: SOD FERRIC GLUC 125 MG in IV NS 0.9% 100 ML IV SCH (15:27)
[2017-07-06] MEDS: Potassium Chloride 10 MEQ, LIDOCAINE HCL/PF 1% 1 ML in IV NS 0.9% 50 ML IV SCH ×2 (15:28→16:32)
[2017-07-06 16:00] VITALS: BP 146/78
[2017-07-06] MEDS: LIDOCAINE 5% (PATCH) 1 EA PATCH TP SCH (17:40)
--- NOTE | 2017-07-06 18:40 | NUR ---
MACHINE BRUSHER NOTES NO ACUTE CHANGES NOTED DURING THE SHIFT. WILL ENDORSE TO THE PM NURSE FOR ARTHUR.
--- NOTE | 2017-07-06 19:36 | NUR ---
BROACH SETTER INITIAL NOTES PT IS SITTING UP IN CHAIR AT BEDSIDE WITH FAMILY. NO SIGNS OF SOB OR DISTRESS, BREATHING EVENLY AND UNLABORED ON NS. IV ACCESS IS INTACT AND PATENT. COMPLAINTS OF PAIN, HAS SCHEDULED OXY- PT AWARE. 1:1 SITTER AT BEDSIDE. CALL LIGHT IS WITHIN REACH. WILL CONTINUE TO MONITOR PT
[2017-07-06 20:00] VITALS: BP 169/83
[2017-07-06] MEDS: ENOXAPARIN SODIUM 40 MG/0.4 ML DISP.SYRIN SQ SCH (21:00)
[2017-07-06] MEDS: ZOLPIDEM TARTRATE 10 MG TABLET PO PRN (22:20)
[2017-07-07] VITALS: BP 159/79
[2017-07-07 04:16] VITALS: BP 155/59
[2017-07-07] MEDS: VANCOMYCIN HCL 125 MG/2.5 ML ORAL.SUSP PO SCH ×4 (05:28→23:37)
[2017-07-07] MEDS: ACETAMINOPHEN 325 MG TABLET PO SCH ×4 (05:28→23:37)
[2017-07-07] MEDS: oxyCODONE HCL SR 10MG TAB.SR.12H PO SCH ×3 (05:28→20:49)
--- NOTE | 2017-07-07 06:13 | NUR ---
SIGNAL HELPER CLOSING NOTES PT IS IN BED SLEEPING, EASILY AROUSED. 1:1 SITTER AT BEDSIDE. NO SIGNS OF SOB OR DISTRESS, BREATHING EVENLY AND UNLABORED ON NC. NO ACUTE CHANGES THROUGHOUT THE SHIFT. ALL NEEDS WERE ANTICIPATED AND MET. BED IS IN LOW AND LOCKED POSITION, CALL LIGHT WITHIN REACH. WILL ENDORSE TO DAYSHIFT.
--- NOTE | 2017-07-07 07:24 | NUR ---
ASSEMBLY TECHNICIAN NOTES RECEIVED PT ON BED SLEEPING. ALERT ORIENTED X4 . ON NASAL CANNULA 5L SATURATING WELL. ALAN MIDLINE AND RFA #22 INTACT. HEAD OF BED ELEVATED. SIDE RAILS UP. CALL LIGHT WITHIN REACH. PT WITH SITTER. WILL CONTINUE TO MONITOR PT CLOSELY.
[2017-07-07 07:41] LABS: BASOPHILS % (AUTO) 0.1 % (0.0-2.0); EOSINOPHILS # (AUTO) 0.2 /CMM (0.0-0.7); EOSINOPHILS % (AUTO) 1.2 % (0.0-6.0); HEMATOCRIT 27 % (33-45); HEMOGLOBIN 8.6 g/dL (11.5-14.8); LYMPHOCYTES # (AUTO) 3.4 /CMM (0.8-4.8); LYMPHOCYTES % (AUTO) 18.1 % (20.0-44.0); MEAN CORPUSCULAR HEMOGLOBIN 26 PG (26.0-33.0); MEAN CORPUSCULAR HGB CONC 32 g/dl (31.0-36.0); MEAN CORPUSCULAR VOLUME 80 fL (82-100); MONOCYTES # (AUTO) 1.1 /CMM (0.1-1.30); MONOCYTES % (AUTO) 5.6 % (2.0-12.0); NEUTROPHILS # (AUTO) 14.3 /CMM (1.8-8.9); PLATELET COUNT (AUTO) 720 /CMM (150-450); RDW COEFFICIENT OF VARIATION 18.7 (11.5-15.0); RED BLOOD CELL COUNT(AUTO) 3.35 MIL/uL (4.0-5.2)
[2017-07-07 08:00] VITALS: BP_SYST 150; BP_DIAS 71; BP_DIAS 73
[2017-07-07 08:00] LABS: CALCIUM, SERUM 8.5 mg/dL (8.5-10.1); CARBON DIOXIDE 27 mmol/L (21-32); CHLORIDE 102 mmol/L (98-107); CREATININE 0.9 mg/dL (0.6-1.3); GLUCOSE 93 mg/dL (74-106); PHOSPHORUS 3.5 mg/dL (2.5-4.9); POTASSIUM 3.2 mmol/L (3.5-5.1); SODIUM SERUM 140 mmol/L (136-145); UREA NITROGEN, BLOOD 12 mg/dL (7-18)
[2017-07-07] MEDS: ASPIRIN 81 MG TAB.CHEW PO SCH (09:00)
[2017-07-07] MEDS: BENICAR 40 MG PO SCH (09:42)
[2017-07-07] MEDS: METOPROLOL SUCCINATE 25 MG TAB.SR.24H PO SCH ×2 (09:43→17:57)
[2017-07-07] MEDS: LACTOBACILLUS RHAMNOSUS GG 1 EACH CAP.SPRINK PO SCH ×2 (09:43→17:00)
[2017-07-07] MEDS: METFORMIN 500 MG TABLET PO SCH ×2 (09:44→17:56)
[2017-07-07] MEDS: AMIODARONE HCL 200 MG TABLET PO SCH (09:44)
[2017-07-07] MEDS: AMLODIPINE BESYLATE 10 MG TABLET PO SCH (09:44)
--- NOTE | 2017-07-07 10:42 | NUR ---
BOTTLE BOOTH ATTENDANT NOTES PT CONFUSED AND NEEDY. AND PT IS RISK FOR FALL
[2017-07-07 12:00] VITALS: BP_SYST 150; BP_DIAS 69; BP_DIAS 73
[2017-07-07] MEDS: ATORVASTATIN 10 MG TABLET PO SCH (12:04)
[2017-07-07] MEDS: POTASSIUM CHLORIDE 20 MEQ TAB.PRT.SR PO SCH ×2 (12:05→12:30)
--- NOTE | 2017-07-07 13:04 | NUR ---
PRIVATE BRANCH EXCHANGE INSTALLER NOTES PT REFUSING POTASSIUM TABLET. VERBALIZED THAT IT MAKE HER SICK. EXPLAINED THE RISK AND BENEFITS OF THE DRUG,
[2017-07-07] MEDS: SOD FERRIC GLUC 125 MG in IV NS 0.9% 100 ML IV SCH (13:45)
--- NOTE | 2017-07-07 13:45 | NUR ---
WEDDING FLORIST NOTES PT REFUSE TO HAVE FERRLECIT. EXPLAINED THE RISK AND BENEFITS OF THE DRUG.
[2017-07-07] MEDS: PANTOPRAZOLE 40 MG VIAL IV SCH (14:06)
[2017-07-07] MEDS: LOPERAMIDE HCL (2 MG CAP) 2 MG CAPSULE PO PRN (14:06)
[2017-07-07] MEDS ORDERED: CYCLOBENZAPRINE 10 MG TABLET PO PRN (15:30)
[2017-07-07 16:00] VITALS: BP 150/73
[2017-07-07] MEDS: LIDOCAINE 5% (PATCH) 1 EA PATCH TP SCH (17:56)
[2017-07-07] MEDS ORDERED: MENTHOL/CETYLPYRD (CEPACOL) 1 LOZ LOZENGE PO PRN (18:30)
--- NOTE | 2017-07-07 18:56 | NUR ---
CLEANING PORTER NOTES NO ACUTE CHANGES NOTED DURING THE SHIFT. PROVIDED COMFORT AND SAFETY. DUE MEDS GIVEN. WILL ENDORSE TO THE PM NURSE FOR ARTHUR.
--- NOTE | 2017-07-07 19:57 | NUR ---
rn note received patient in the bed, alert/oriented x 4, no respiratory distress noted, sitter and visitor are by bedside, patient refused to have side rails up, explained to patient the risk, patient verbalized understanding still refused, bed in the lowest position, sitter is by bedside, call light within reach, will continue to monitor patient
[2017-07-07 20:00] VITALS: BP 134/76
[2017-07-07] MEDS: ENOXAPARIN SODIUM 40 MG/0.4 ML DISP.SYRIN SQ SCH (20:50)
[2017-07-07] MEDS: ZOLPIDEM TARTRATE 10 MG TABLET PO PRN (23:04)
[2017-07-08] VITALS (8 sets, daily range): BP systolic 112–144; BP diastolic 51–73
[2017-07-08] MEDS: VANCOMYCIN HCL 125 MG/2.5 ML ORAL.SUSP PO SCH ×2 (06:02→12:06)
[2017-07-08] MEDS: oxyCODONE HCL SR 10MG TAB.SR.12H PO SCH ×2 (06:03→14:49)
[2017-07-08] MEDS: ACETAMINOPHEN 325 MG TABLET PO SCH ×2 (06:03→12:07)
[2017-07-08 06:37] LABS: BASOPHILS # (AUTO) 0.1 /CMM (0.0-0.2); BASOPHILS % (AUTO) 0.5 % (0.0-2.0); EOSINOPHILS # (AUTO) 0.2 /CMM (0.0-0.7); HEMATOCRIT 28 % (33-45); LYMPHOCYTES # (AUTO) 5.8 /CMM (0.8-4.8); MEAN CORPUSCULAR HEMOGLOBIN 26 PG (26.0-33.0); MEAN CORPUSCULAR HGB CONC 32 g/dl (31.0-36.0); MEAN CORPUSCULAR VOLUME 80 fL (82-100); MONOCYTES # (AUTO) 1.2 /CMM (0.1-1.30); MONOCYTES % (AUTO) 5.2 % (2.0-12.0); NEUTROPHILS # (AUTO) 15.9 /CMM (1.8-8.9); NEUTROPHILS % (AUTO) 68.3 % (43.0-81.0); PLATELET COUNT (AUTO) 864 /CMM (150-450); RDW COEFFICIENT OF VARIATION 18.8 (11.5-15.0); RED BLOOD CELL COUNT(AUTO) 3.47 MIL/uL (4.0-5.2); WHITE BLOOD COUNT (AUTO) 23.3 K/uL (4.3-11.0)
[2017-07-08 06:41] LABS: CALCIUM, SERUM 8.5 mg/dL (8.5-10.1); CARBON DIOXIDE 28 mmol/L (21-32); CHLORIDE 103 mmol/L (98-107); CREATININE 1.1 mg/dL (0.6-1.3); GLUCOSE 100 mg/dL (74-106); POTASSIUM 3.3 mmol/L (3.5-5.1); SODIUM SERUM 140 mmol/L (136-145); UREA NITROGEN, BLOOD 8 mg/dL (7-18)
--- NOTE | 2017-07-08 06:57 | NUR ---
RN NOTE NO CHANGES DURING MY SHIFT, PATIENT IS STABLE, NO RESPIRATORY DISTRESS NOTED, ALL SAFETY MEASURES TAKEN, SITTER IS BY BEDSIDE, CALL LIGHT WITHIN REACH, ALL BELONGINGS WITHIN REACH, BED IN THE LOWEST POSITION, SIDE RAILS UP X 2, WILL ENDORSE TO AM SHIFT
--- NOTE | 2017-07-08 07:41 | NUR ---
RN NOTES RECEIVED PT FROM EDITOR SCHOOL PHOTOGRAPH, A&0X3, ON 3L NC SATING WELL NO SOB OR DISTRESS NOTED. SR ON THE TELE GONZALO HR 72. ALAN MIDLINE INTACT NO IVF. SITTER AT BEDSIDE. BED LOCKED AND IN LOWEST POSITION, CALL LIGHT WITHIN REACH, SIDE RAILS UPX3, WILL CONT TO GONZALO.
[2017-07-08] MEDS: METFORMIN 500 MG TABLET PO SCH ×2 (09:58→16:37)
[2017-07-08] MEDS: AMIODARONE HCL 200 MG TABLET PO SCH (09:58)
[2017-07-08] MEDS: LACTOBACILLUS RHAMNOSUS GG 1 EACH CAP.SPRINK PO SCH ×2 (09:58→16:37)
[2017-07-08] MEDS: ASPIRIN 81 MG TAB.CHEW PO SCH (09:58)
[2017-07-08] MEDS: BENICAR 40 MG PO SCH (09:58)
[2017-07-08] MEDS: METOPROLOL SUCCINATE 25 MG TAB.SR.24H PO SCH ×2 (09:59→16:37)
[2017-07-08] MEDS: AMLODIPINE BESYLATE 10 MG TABLET PO SCH (09:59)
[2017-07-08] MEDS: POTASSIUM CHLORIDE 20 MEQ TAB.PRT.SR PO SCH ×3 (10:22→12:06)
[2017-07-08 10:25] LABS: CHOLESTEROL 133 mg/dL (<200); HDL CHOLESTEROL 28 mg/dL (40-60); LDL 62 mg/dL (0-99); TRIGLYCERIDES 345 mg/dL (30-150)
[2017-07-08] MEDS: ATORVASTATIN 10 MG TABLET PO SCH (12:07)
[2017-07-08] MEDS ORDERED: CYCL10TA9 PO (14:42)
[2017-07-08] MEDS ORDERED: ASPI-1169 PO (14:42)
[2017-07-08] MEDS ORDERED: VANC125C11 PO (14:42)
[2017-07-08] MEDS: PANTOPRAZOLE 40 MG VIAL IV SCH (14:50)
[2017-07-08] MEDS: LIDOCAINE 5% (PATCH) 1 EA PATCH TP SCH (16:39)
--- NOTE | 2017-07-08 18:26 | NUR ---
RN NOTES PT DISCHARGED HOME IN STABLE CONDITION ON ROOM AIR, OK PER DR MENDOZA.
== END 2017-07-08 18:19 | disposition home health service (06) | DRG 871 ==
LOC: ER 14:01 → TELE1 18:13 → EDBD 18:13 → TELE-TD 06-29 12:10 → ICU 06-30 11:49 → TELE-TD 07-04 16:56 → TELE1 07-05 14:41
PROVIDERS: ADMIT Nurse Practitioner Acute Care; ATTEND Nurse Practitioner Acute Care
PROC: 05H533Z Insertion of Infusion Device into Right Subclavian Vein, Percutaneous Approach (ICD-10-PCS; principal; 2017-06-30)
PROC: 5A09357 Assistance with Respiratory Ventilation, Less than 24 Consecutive Hours, Continuous Positive Airway Pressure (ICD-10-PCS; 2017-07-01)
DX: A41.9 Sepsis, unspecified organism (principal); N17.0 Acute kidney failure with tubular necrosis; I21.A1 Myocardial infarction type 2; D84.9 Immunodeficiency, unspecified; A04.72 Enterocolitis due to Clostridium difficile, not specified as recurrent; J96.01 Acute respiratory failure with hypoxia; J96.02 Acute respiratory failure with hypercapnia; G92 Toxic encephalopathy; J18.9 Pneumonia, unspecified organism; N39.0 Urinary tract infection, site not specified; E44.1 Mild protein-calorie malnutrition; E87.2 Acidosis; K83.8 Other specified diseases of biliary tract; B96.20 Unspecified Escherichia coli [E. coli] as the cause of diseases classified elsewhere; E11.9 Type 2 diabetes mellitus without complications; D50.9 Iron deficiency anemia, unspecified; F17.210 Nicotine dependence, cigarettes, uncomplicated; E78.5 Hyperlipidemia, unspecified; E83.39 Other disorders of phosphorus metabolism; E83.42 Hypomagnesemia; E87.6 Hypokalemia; F41.9 Anxiety disorder, unspecified; G89.4 Chronic pain syndrome; I48.0 Paroxysmal atrial fibrillation; K21.9 Gastro-esophageal reflux disease without esophagitis; E86.0 Dehydration; R65.20 Severe sepsis without septic shock; Z86.718 Personal history of other venous thrombosis and embolism; Z86.711 Personal history of pulmonary embolism; M17.9 Osteoarthritis of knee, unspecified; M16.0 Bilateral primary osteoarthritis of hip; Z68.31 Body mass index [BMI] 31.0-31.9, adult; R59.0 Localized enlarged lymph nodes; E04.1 Nontoxic single thyroid nodule; Z90.49 Acquired absence of other specified parts of digestive tract; Z91.81 History of falling; Z16.12 Extended spectrum beta lactamase (ESBL) resistance; I10 Essential (primary) hypertension
CPT/HCPCS: 36415; 36600; 70450-TC; 71045-TC; 74018; 76705-TC; 77075-TC; 80048-TC; 80053-TC; 80061-TC; 80076-TC; 80202-TC; 80305; 81000-TC; 82232; 82272-TC; 82306; 82728-TC; 82746; 82784; 82803-TC; 82962-TC; 83520; 83540-TC; 83605-TC; 83690-TC; 83735-TC; 83880; 83891; 83900; 83909; 83912; 84100-TC; 84132-TC; 84155; 84165; 84443-TC; 84484-TC; 85025-TC; 85027-TC; 85396; 85730-TC; 86140-TC; 86256; 86334; 86580-TC; 86850-TC; 87040-TC; 87081-TC; 87086-TC; 87186-TC; 87400; 93307-TC; 93970-TC; 94762-TC; 94799-TC; 97110-TC; 97116-TC; 97530-TC; A4216; A4606; C9113; G0480; J0360; J0456; J0692; J0696; J1650; J1940; J2060; J2310; J2405; J2543; J2916; J2930; J3370; J3475; J3480; J3490; J7030; J7040; J7042; J7050; J7060; Q9967; Z7610

== ENCOUNTER 2017-07-09 15:28 | Emergency (ER) | payer MEDICARE ==
[~2017-07-09 15:28] MED LIST: ALPR0.5T8 PO; AMIO200T2 PO; AMLO10TA2 PO; ASPI-1169 PO; CYCL10TA9 PO; DOCU-159 PO; FLUC200T8 PO; GABA-534 PO; METF500T4 PO; METO25TA3 PO; OLME20TA13 PO; OXYC10TA49 PO; RANI150T8 PO; ROSU10TA PO; VANC125C11 PO; ZOLP10TA6 PO
--- NOTE | 2017-07-09 16:30 | NUR ---
PLACED NC 4L DUE TO SATURATION AT 88% ROOM AIR.
--- NOTE | 2017-07-09 17:00 | NUR ---
O2 SATURATION 100%, O2 LOWERED TO 2L/MIN VIA NC.
--- NOTE | 2017-07-09 17:05 | NUR ---
EKG IN PROGRESS
[2017-07-09 17:18] LABS: BASOPHILS # (AUTO) 0.4 /CMM (0.0-0.2); BASOPHILS % (AUTO) 2.6 % (0.0-2.0); EOSINOPHILS # (AUTO) 0.2 /CMM (0.0-0.7); EOSINOPHILS % (AUTO) 1.1 % (0.0-6.0); HEMATOCRIT 27 % (33-45); HEMOGLOBIN 9.3 g/dL (11.5-14.8); LYMPHOCYTES % (AUTO) 23.7 % (20.0-44.0); MEAN CORPUSCULAR HEMOGLOBIN 27 PG (26.0-33.0); MEAN CORPUSCULAR HGB CONC 34 g/dl (31.0-36.0); MEAN CORPUSCULAR VOLUME 78 fL (82-100); MONOCYTES # (AUTO) 1.4 /CMM (0.1-1.30); MONOCYTES % (AUTO) 8.2 % (2.0-12.0); NEUTROPHILS # (AUTO) 11.1 /CMM (1.8-8.9); NEUTROPHILS % (AUTO) 64.4 % (43.0-81.0); PLATELET COUNT (AUTO) 894 /CMM (150-450); RDW COEFFICIENT OF VARIATION 18.1 (11.5-15.0); RED BLOOD CELL COUNT(AUTO) 3.48 MIL/uL (4.0-5.2); WHITE BLOOD COUNT (AUTO) 17.1 K/uL (4.3-11.0)
[2017-07-09 17:31] LABS: CALCIUM, SERUM 8.7 mg/dL (8.5-10.1); CARBON DIOXIDE 26 mmol/L (21-32); CHLORIDE 103 mmol/L (98-107); CREATININE 1.1 mg/dL (0.6-1.3); GLUCOSE 113 mg/dL (74-106); POTASSIUM 3.8 mmol/L (3.5-5.1); SODIUM SERUM 137 mmol/L (136-145); UREA NITROGEN, BLOOD 9 mg/dL (7-18)
[2017-07-09 17:39] LABS: TROPONIN I < 0.017 ng/mL (0.00-0.056)
--- NOTE | 2017-07-09 18:11 | NUR ---
CALLED [employer], JAIL GUARD WAS PAGED.
--- NOTE | 2017-07-09 18:12 | NUR ---
REPORT GIVEN TO WU KAT FOR ARTHUR UPON ADMISSION.
[2017-07-09 18:45] VITALS: BP 138/64
--- NOTE | 2017-07-09 19:02 | NUR ---
report given to CARL GRAY FOR ARTHUR.
--- NOTE | 2017-07-09 19:06 | NUR ---
CALLED THE [facility] FOR TRANSPORT ETA [id number] WAS GIVEN. TRIP#[id number]
--- NOTE | 2017-07-09 19:06 | NUR ---
REPORT REC'D FROM [place] FOR ARTHUR.
--- NOTE | 2017-07-09 19:07 | NUR ---
PT REQUESTED BEDSIDE COMMODE. MICHAEL, EMT IS ASSISTING PT WITH BSC.
--- NOTE | 2017-07-09 19:10 | NUR ---
COULD NOT FIND BSC. PT WENT TO THE BATHROOM VIA .
--- NOTE | 2017-07-09 19:18 | NUR ---
PT RETURNED FROM THE BATHROOM. DR. GANN IS AT THE BEDSIDE SPEAKING TO THE PT.
--- NOTE | 2017-07-09 20:18 | NUR ---
[facility] SUPERVISOR TITLE ARRIVED.
--- NOTE | 2017-07-09 20:29 | NUR ---
IV removed. Catheter intact and site benign. Pressure and 4x4 applied to site. No bleeding noted.Patient discharged to home in stable condition. Written and verbal after care instructions given. Patient verbalizes understanding of instruction. PT BEING TRANSPORTED BY AMBULANCE TO [facility] WHICH WAS SET UP BY KOTA URENA DNP. VSS PT IS EATING A POPCICLE
== END 2017-07-09 20:31 | disposition home or self-care (01) ==
LOC: ER 15:29 → MEDSG1 18:20 → UNDOADMIN 18:20 → ER 20:31
DX: J96.91 Respiratory failure, unspecified with hypoxia (principal); I10 Essential (primary) hypertension; Z79.82 Long term (current) use of aspirin; F17.200 Nicotine dependence, unspecified, uncomplicated; Z98.890 Other specified postprocedural states
CPT/HCPCS: 36415; 71045; 80048; 82962; 84484; 85025; 93005 ×2; 99285; A4606; Z7610

== ENCOUNTER 2017-08-05 12:48 | Outpatient (CLI) | payer MEDICARE ==
[~2017-08-05 12:48] MED LIST changes: -AMIO200T2 PO; +AMIO200T4 PO; -AMLO10TA2 PO; +AMLO10TA6 PO; -FLUC200T8 PO; +METF-440 PO; -METF500T4 PO
[2017-08-05 13:46] VITALS: BP 162/71
== END 2017-08-05 23:59 | disposition home or self-care (01) ==
LOC: EDBD → MSC 12:48
PROVIDERS: ATTEND Internal Medicine
DX: I10 Essential (primary) hypertension (principal); M54.5 Low back pain; M19.90 Unspecified osteoarthritis, unspecified site; F41.9 Anxiety disorder, unspecified; E78.5 Hyperlipidemia, unspecified; G89.29 Other chronic pain; M79.89 Other specified soft tissue disorders; F17.200 Nicotine dependence, unspecified, uncomplicated; Z96.653 Presence of artificial knee joint, bilateral; Z96.611 Presence of right artificial shoulder joint; Z96.649 Presence of unspecified artificial hip joint

== ENCOUNTER 2017-08-12 12:59 | Outpatient (CLI) | payer MEDICARE, OTHER ==
[2017-08-12] MEDS ORDERED: VALS80TA2 PO (13:07)
[2017-08-12 13:18] VITALS: BP 157/83
== END 2017-08-12 23:59 | disposition home or self-care (01) ==
LOC: EDBD → MSC 12:59
PROVIDERS: ATTEND Internal Medicine
DX: M54.5 Low back pain (principal); M79.89 Other specified soft tissue disorders; I10 Essential (primary) hypertension; E78.5 Hyperlipidemia, unspecified; F41.9 Anxiety disorder, unspecified; M19.90 Unspecified osteoarthritis, unspecified site; Z96.653 Presence of artificial knee joint, bilateral; Z96.611 Presence of right artificial shoulder joint; Z86.711 Personal history of pulmonary embolism

== ENCOUNTER 2017-08-13 11:10 | Outpatient (CLI) | payer MEDICARE, OTHER ==
[~2017-08-13 11:10] MED LIST changes: -METF-440 PO; +VALS80TA2 PO; -VANC125C11 PO
== END 2017-08-13 23:59 | disposition home or self-care (01) ==
LOC: EDBD → WOU 11:10 → EDBD 11:10 → WOU 23:59
PROVIDERS: ATTEND Podiatrist Foot & Ankle Surgery
DX: M21.40 Flat foot [pes planus] (acquired), unspecified foot (principal); I87.8 Other specified disorders of veins; G60.9 Hereditary and idiopathic neuropathy, unspecified; R60.9 Edema, unspecified; M19.90 Unspecified osteoarthritis, unspecified site; R26.9 Unspecified abnormalities of gait and mobility; M21.70 Unequal limb length (acquired), unspecified site; Z96.652 Presence of left artificial knee joint; Z96.643 Presence of artificial hip joint, bilateral; Z96.611 Presence of right artificial shoulder joint
CPT/HCPCS: G0463

== ENCOUNTER 2020-12-29 02:35 | Emergency (ER) | payer MEDICARE, OTHER ==
[~2020-12-29] VITALS: Ht 162.6 cm; Wt 63.5 kg
[~2020-12-29 02:35] MED LIST changes: -AMIO200T4 PO; +AMIO200T5 PO; +AMLO-213 PO; -AMLO10TA6 PO; -ROSU10TA PO; +ROSU10TA2 PO
--- NOTE | 2020-12-29 02:52 | NUR ---
SELVIN, DAUGHTER: [phone]
--- NOTE | 2020-12-29 02:55 | NUR ---
FELISA FROM HOME FOR C/O BILATERAL SAEZ SKIN TEAR S/P FALL FROM BED. PT VERY DROWSY. SPOKE TO THE DAUGHTER OVER THE PHONE SHE HAD AMBIEN AND POSSIBLY OXYCODONE BEFORE SLEEP. PT WAS ASSISTED TO BED 11 ER. WS PLACED ON A MONITOR. VSS. REPORTED UNKNOWN LAST TDAP. EMT AT BED SIDE FOR WOUND CARE. WILL CONT TO MONITOR
[2020-12-29] MEDS ORDERED: TDAP [DIPH/PERTUSSIS/TET] 0.5 ML VIAL IM ONE (02:59)
[2020-12-29] MEDS: TDAP [DIPH/PERTUSSIS/TET] 0.5 ML VIAL IM ONE (03:00)
[2020-12-29] MEDS ORDERED: LIDOCAINE 1%-EPI 1:100,000 20 ML VIAL ONE (03:03)
--- NOTE | 2020-12-29 03:20 | NUR ---
MD @ BEDSIDE DOING STITCHES.
--- NOTE | 2020-12-29 03:56 | NUR ---
[facility] [phone]
--- NOTE | 2020-12-29 07:27 | NUR ---
Patient in bed, asleep. no SOB or respiratory distress noted
--- NOTE | 2020-12-29 07:58 | NUR ---
THE PATIENT SLEEPING. RESPONSIVE TO VERBAL STIMULI. RESPIRATION REGULAR AND UNLABORED. IN NO APPARENT DISTRESS. WILL CONTINUE TO MONITOR THE PATIENT.
--- NOTE | 2020-12-29 10:20 | NUR ---
Patient aroused and informed that her family will be picking her up.
[2020-12-29 10:37] VITALS: BP 140/82
--- NOTE | 2020-12-29 10:38 | NUR ---
Patient discharged to home in stable condition. Written and verbal after care instructions given. Patient verbalizes understanding of instruction.
== END 2020-12-29 10:39 | disposition home or self-care (01) ==
LOC: ER 02:39
DX: S81.812A Laceration without foreign body, left lower leg, initial encounter (principal); F19.10 Other psychoactive substance abuse, uncomplicated; R51.9 Headache, unspecified; I10 Essential (primary) hypertension; I48.91 Unspecified atrial fibrillation; F10.10 Alcohol abuse, uncomplicated; F17.200 Nicotine dependence, unspecified, uncomplicated; Y90.9 Presence of alcohol in blood, level not specified; Z98.890 Other specified postprocedural states; Z79.82 Long term (current) use of aspirin; Z79.899 Other long term (current) drug therapy; W06.XXXA Fall from bed, initial encounter; Y93.89 Activity, other specified; Y92.89 Other specified places as the place of occurrence of the external cause; Y99.8 Other external cause status
CPT/HCPCS: 12005; 70450; 72125; 90471; 90715; 99285; A6403; J3490; L0172